=== PATIENT | male | born 1950 | race Caucasian/White ===

== ENCOUNTER → 2018-02-12 10:28 | Outpatient (CLI) | payer MEDICARE, SELFPAY | PROVIDERS: PCP Family Medicine; Visit Provider Family Medicine | DX: I48.91 Unspecified atrial fibrillation (principal) ==

== ENCOUNTER → 2018-02-14 08:41 | Outpatient (CLI) | payer MEDICARE, SELFPAY ==
[2018-02-14 10:06] LABS: Add Manual Diff / Slide Review NO; Eosinophils Percent Auto 2.5 % (2-4); Hematocrit 48.8 % (41-53); Hemoglobin 16.7 g/dL (13.5-17.5); Lymphocytes Percent Auto 16.4 % (25-40); Mean Corpuscular HGB Conc 34.2 % (30-36); Mean Corpuscular Hemoglobin 31.9 PG (26-34); Mean Corpuscular Volume 93.4 fL (80-100); Neutrophils Absolute Auto 4500 /uL (3000-5900); Neutrophils Percent Auto 70.1 % (50-75); Platelet Count 135 X10^3/uL (150-400); Red Blood Cell Count 5.22 X10^6/uL (4.5-5.9); Red Cell Distribution Width 13.3 % (11.6-14.8); White Blood Cell Count 6.3 X10^3/uL (4.5-11.0)
[2018-02-14 10:38] LABS: Alanine Aminotransferase 47 IU/L (21-72); Albumin 4.1 g/dL (3.5-5.0); Albumin Globulin Ratio 1.4 (1.0-2.8); Alkaline Phosphatase 80 U/L (38-126); Aspartate Aminotransferase 32 IU/L (17-59); BUN Creatinine Ratio 24.2 (6-22); Bilirubin Total 1.1 mg/dL (0.2-1.3); Blood Urea Nitrogen 29 mg/dL (9-20); Carbon Dioxide 28 mmol/L (22-32); Chloride 101 mmol/L (98-107); Cholesterol 166 mg/dL (140-199); Estimated Glomerular Filt Rate > 60.0 mL/min (>60); Globulin 2.9 g/dL (1.7-4.1); Glucose 98 mg/dL (80-110); HDL Cholesterol 33 mg/dL (40-60); HEMOLYSIS 16 (0-50); LDL Cholesterol Calculated 84 mg/dL (<100); Potassium 4.5 mmol/L (3.4-5.1); Sodium 138 mmol/L (137-145); Triglycerides 243 mg/dL (35-150)
[2018-02-14 10:52] LABS: Digoxin < 0.4 ng/mL (0.8-2.0)
[2018-02-14 11:06] LABS: Prostate Specific Antigen Scrn 0.694 ng/mL (0.1-4.0)
[2018-02-14 11:07] LABS: Thyroid Stimulating Hormone 2.57 uIU/mL (0.47-4.68)
== END ==
PROVIDERS: PCP Family Medicine; Visit Provider Family Medicine
DX: I48.91 Unspecified atrial fibrillation (principal); I50.9 Heart failure, unspecified; Z12.5 Encounter for screening for malignant neoplasm of prostate
CPT/HCPCS: 36415; 80053; 80061; 80162; 84443; 85025; G0103

== ENCOUNTER → 2019-05-04 14:51 | Outpatient (CLI) | payer MEDICARE, SELFPAY ==
--- NOTE | 2019-05-04 15:00 | DI.RAD.S_ITS ---
PROCEDURE: XR WRIST LT MIN 3V INDICATIONS: pain TECHNIQUE: 3 views of the wrist were acquired. COMPARISON: None. FINDINGS: Bones: Postsurgical changes compatible with ORIF of first metacarpal fracture noted. Orthopedic hardware is intact. No lucencies at the bone hardware interface. No acute fractures or dislocations. No suspicious bony lesions. 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 Scaphoid view: Scaphoid is intact Soft tissues: No suspicious soft tissue calcifications. IMPRESSION: No acute fracture. No acute osseous lesion. If symptoms and/or clinical suspicion for pathology persists, further assessment with repeat radiographs (7-10 days) or advanced imaging (e.g. CT, MRI or bone scan) may be helpful. Dictated by: Ginger López MD, PhD on 05/04/2019 at 15:03 Approved by: Ginger López MD, PhD on 05/04/2019 at 15:04
--- NOTE | 2019-05-04 15:00 | DI.RAD.S_ITS ---
PROCEDURE: XR HAND LT MIN 3V INDICATIONS: pain TECHNIQUE: 3 views of the hand(s) acquired. COMPARISON: None. FINDINGS: Bones: No acute fractures or dislocations. Osteoarthritic degenerative changes. Carpal bones are normally aligned. No suspicious bony lesions. Soft tissues: No suspicious soft tissue calcifications. IMPRESSION: No acute fracture. No acute osseous lesion. If symptoms and/or clinical suspicion for pathology persists, further assessment with repeat radiographs (7-10 days) or advanced imaging (e.g. CT, MRI or bone scan) may be helpful. Dictated by: Ginger López MD, PhD on 05/04/2019 at 14:42 Approved by: Ginger López MD, PhD on 05/04/2019 at 15:03
== END ==
PROVIDERS: PCP Family Medicine; Visit Provider Family Medicine
DX: M79.642 Pain in left hand (principal); S69.92XA Unspecified injury of left wrist, hand and finger(s), initial encounter; X58.XXXA Exposure to other specified factors, initial encounter
CPT/HCPCS: 73110; 73130

== ENCOUNTER → 2019-05-08 15:27 | Outpatient (CLI) | payer MEDICARE, SELFPAY ==
[2019-05-08 16:11] LABS: Add Manual Diff / Slide Review NO; Basophils Absolute Auto 100 /uL (0-100); Basophils Percent Auto 1.2 % (0-2); Eosinophils Absolute Auto 200 /uL (0-450); Eosinophils Percent Auto 3.4 % (2-4); Hematocrit 52.3 % (41-53); Hemoglobin 17.8 g/dL (13.5-17.5); Lymphocytes Absolute Auto 1800 /uL (1100-4500); Lymphocytes Percent Auto 25.3 % (25-40); Mean Corpuscular HGB Conc 33.9 % (30-36); Mean Corpuscular Hemoglobin 31.7 PG (26-34); Mean Corpuscular Volume 93.4 fL (80-100); Monocytes Absolute Auto 500 /uL (0-900); Monocytes Percent Auto 6.9 % (3-14); Neutrophils Absolute Auto 4400 /uL (1500-7000); Neutrophils Percent Auto 63.2 % (50-75); Platelet Count 162 X10^3/uL (150-400); Red Cell Distribution Width 13.7 % (11.6-14.8)
[2019-05-08 16:39] LABS: Alanine Aminotransferase 36 IU/L (21-72); Albumin 4.4 g/dL (3.5-5.0); Albumin Globulin Ratio 1.5 (1.0-2.8); Alkaline Phosphatase 106 U/L (38-126); Aspartate Aminotransferase 28 IU/L (17-59); BUN Creatinine Ratio 27.3 (6-22); Bilirubin Total 0.8 mg/dL (0.2-1.3); Blood Urea Nitrogen 30 mg/dL (9-20); Calcium 9.6 mg/dL (8.4-10.2); Carbon Dioxide 24 mmol/L (22-32); Chloride 100 mmol/L (98-107); Cholesterol 226 mg/dL (140-199); Estimated Glomerular Filt Rate > 60.0 mL/min (>60); Globulin 2.9 g/dL (1.7-4.1); Glucose 154 mg/dL (80-110); HDL Cholesterol 36 mg/dL (40-60); HEMOLYSIS 28 (0-50); LDL Cholesterol Calculated 118 mg/dL (<100); Potassium 4.9 mmol/L (3.4-5.1); Sodium 137 mmol/L (137-145); Total Protein 7.3 g/dL (6.3-8.2); Triglycerides 361 mg/dL (35-150)
[2019-05-08 17:09] LABS: Prostate Specific Antigen Scrn 0.765 ng/mL (0.1-4.0); Thyroid Stimulating Hormone 3.76 uIU/mL (0.47-4.68)
[2019-05-08 21:17] LABS: Hemoglobin A1C% w Est Avg Glu 6.6 % (4.0-6.0)
== END ==
PROVIDERS: PCP Family Medicine; Visit Provider Family Medicine
DX: Z12.5 Encounter for screening for malignant neoplasm of prostate (principal); Z13.1 Encounter for screening for diabetes mellitus; Z13.220 Encounter for screening for lipoid disorders; Z13.29 Encounter for screening for other suspected endocrine disorder; I48.91 Unspecified atrial fibrillation; I50.9 Heart failure, unspecified
CPT/HCPCS: 36415; 80053; 80061; 83036; 84443; 85025; G0103

== ENCOUNTER 2019-05-10 13:35 | Emergency (ER) | payer MEDICARE, SELFPAY ==
[2019-05-10 13:40] VITALS: BP 102/84; PULSE 105; RESP 18; TEMP 36.7; O2SAT 96
[2019-05-10 14:19] LABS: Add Manual Diff / Slide Review NO; Basophils Absolute Auto 100 /uL (0-100); Basophils Percent Auto 0.5 % (0-2); Eosinophils Absolute Auto 100 /uL (0-450); Eosinophils Percent Auto 1.2 % (2-4); Hematocrit 51.9 % (41-53); Hemoglobin 17.6 g/dL (13.5-17.5); Lymphocytes Absolute Auto 1400 /uL (1100-4500); Lymphocytes Percent Auto 14.7 % (25-40); Mean Corpuscular Hemoglobin 31.9 PG (26-34); Mean Corpuscular Volume 93.7 fL (80-100); Monocytes Absolute Auto 800 /uL (0-900); Monocytes Percent Auto 8.6 % (3-14); Neutrophils Absolute Auto 7300 /uL (1500-7000); Platelet Count 168 X10^3/uL (150-400); Red Blood Cell Count 5.53 X10^6/uL (4.5-5.9); Red Cell Distribution Width 13.5 % (11.6-14.8); White Blood Cell Count 9.7 X10^3/uL (4.5-11.0)
[2019-05-10 14:25] LABS: Prothrombin Time 11.9 SECONDS (10.1-12.7)
[2019-05-10 14:27] LABS: PTT Partial Thromboplastin Tim 33 SECONDS (26.4-36.2)
[2019-05-10 14:29] LABS: Alanine Aminotransferase 31 IU/L (21-72); Albumin 4.7 g/dL (3.5-5.0); Albumin Globulin Ratio 1.5 (1.0-2.8); Alkaline Phosphatase 106 U/L (38-126); Aspartate Aminotransferase 34 IU/L (17-59); Bilirubin Total 0.9 mg/dL (0.2-1.3); Blood Urea Nitrogen 39 mg/dL (9-20); Calcium 9.6 mg/dL (8.4-10.2); Carbon Dioxide 27 mmol/L (22-32); Chloride 100 mmol/L (98-107); Estimated Glomerular Filt Rate 46.5 mL/min (>60); Globulin 3.2 g/dL (1.7-4.1); Glucose 139 mg/dL (80-110); HEMOLYSIS 23 (0-50); Lipase 49 U/L (23-300); Potassium 4.2 mmol/L (3.4-5.1); Sodium 139 mmol/L (137-145); Total Protein 7.9 g/dL (6.3-8.2)
[2019-05-10 14:52] LABS: Procalcitonin 0.08 ng/mL (<0.5)
[2019-05-10] MEDS: SODIUM CHLORIDE 0.9% 1,000 ML 1000 ML IV (15:02)
[2019-05-10 15:33] VITALS: BP 108/81; PULSE 99; RESP 18; O2SAT 96
[2019-05-10] MEDS: VANCOMYCIN 1,500 MG/300 ML FROZ.PIGGY 200 MG IV (15:39)
--- NOTE | 2019-05-10 16:32 | ED.FEVER ---
HPI - Fever General Chief Complaint: Fever Stated Complaint: Cut left hand a week ago, discoloration up arm Time Seen by Provider: 05/10/19 14:08 Source: patient Mode of arrival: Ambulatory Limitations: no limitations History of Present Illness HPI Narrative: Patient comes emergency department complaining of a swollen, red left hand after sustaining an injury about 1 week ago. Patient has been on Keflex for an infected wound related to that injury for about the last 5-6 days and states he is taking ?most of the doses?. He admits to missing ?1 or 2 doses?. Patient states this swelling has not gotten better but has actually got a little bit worse. He denies any fevers. He states he has not felt ill in any other way. Related Data Home Medications Medication Instructions Recorded Confirmed multivitamin [Multiple Vitamins] 1 tab PO DAILY #0 12/27/16 05/11/19 omega 3-pty-pyy-fish oil [Fish Oil] 1,000 mg PO DAILY #0 12/27/16 05/11/19 cholecalciferol (vitamin D3) 2,000 unit PO DAILY 05/10/19 05/11/19 atorvastatin 40 mg PO DAILY 05/11/19 05/11/19 carvedilol 12.5 mg PO BID 05/11/19 05/11/19 citalopram 60 mg PO DAILY 05/11/19 05/11/19 cyanocobalamin (vitamin B-12) 2,000 mcg PO DAILY 05/11/19 05/11/19 [Vitamin B-12] furosemide 40 mg PO DAILY 05/11/19 05/11/19 lisinopril 5 mg PO DAILY 05/11/19 05/11/19 magnesium oxide 400 mg PO DAILY 05/11/19 05/11/19 Previous Rx's Medication Instructions Recorded amiodarone 200 mg tablet 200 mg PO [facility] #90 tab 03/09/19 metoprolol succinate 100 mg 150 mg PO BID #270 tab 03/09/19 tablet,extended release 24 hr apixaban 5 mg tablet 5 mg PO BID #60 tab 05/14/19 oxycodone 5 mg PO Q6H PRN #20 tab 05/14/19 Allergies Allergy/AdvReac Type Severity Reaction Status Date / Time Iodinated Contrast Media AdvReac Intermediate Vomiting Verified 05/11/19 14:19 Review of Systems Constitutional Constitutional: Denies chills, Denies fatigue, Denies fever(s), Denies frequent falls, Denies lethargy and Denies weakness Eyes Eyes: Denies change in vision, Denies eye discharge, Denies irritation and Denies loss of vision ENT Ears, Nose, Mouth, and Throat: Denies change in voice, Denies dizziness, Denies neck pain, Denies sore throat and Denies throat swelling Cardiovascular Cardiovascular: Denies chest pain, Denies irregular heart rhythm, Denies lightheadedness, Denies palpitations, Denies dyspnea, Denies dyspnea on exertion and Denies orthopnea Respiratory Respiratory: Denies cough, Denies dyspnea, Denies dyspnea on exertion and Denies wheezing Gastrointestinal Gastrointestinal: Denies abdominal pain, Denies change in bowel habits, Denies diarrhea, Denies nausea and Denies vomiting Genitourinary Genitourinary: Denies hematuria, Denies flank pain, Denies urinary incontinence and Denies urinary urgency Musculoskeletal Musculoskeletal: Denies back pain, Denies muscle weakness, Denies neck pain, Denies numbness and Denies tingling Comments: Left hand swelling Integumentary/Breasts Skin/Breast: Denies pruritus, Reports erythema, Denies rash and Reports wounds Comments: Left hand Neurologic Neurologic: Denies behavioral changes, Denies confusion, Denies dizziness, Denies frequent falls, Denies loss of vision, Denies numbness, Denies tingling and Denies weakness Psychiatric Psychiatric: Denies anxiety, Denies behavioral changes, Denies confusion, Denies depression, Denies homicidal ideation and Denies suicidal ideation Endocrine Endocrine: Denies fatigue, Denies flushing and Denies palpitations Hematologic/Lymphatic Hematologic/Lymphatic: Denies easy bruising Allergic/Immunologic Allergic/Immunologic: Denies urticaria, Denies throat swelling and Denies wheezing Patient History Medical History Anticoagulated by anticoagulation treatment (Acute) Atrial fibrillation (Chronic 01/07/17) Cardiomyopathy, nonischemic (Chronic) Cellulitis (Acute) Chronic congestive heart failure (Chronic 01/07/17) Essential hypertension (Chronic) Left lower lobe pulmonary nodule (Chronic) Mediastinal lymphadenopathy (Chronic 01/07/17) Pulmonary hypertension (Chronic) Social History household members: spouse Smoking Status: Former smoker alcohol intake frequency: 0-2 drinks per day Substance Use Type: marijuana Exam Initial Vital Signs Initial Vital Signs: Vital Signs Temperature 98.1 F 05/10/19 13:40 Pulse Rate 105 H 05/10/19 13:40 Respiratory Rate 18 05/10/19 13:40 Blood Pressure 102/84 05/10/19 13:40 Pulse Oximetry 96 05/10/19 13:40 Const General: cooperative and well developed Nutritional Appearance: well nourished Orientation: alert, awake, oriented x3 and not confused [facility] Head: normocephalic and atraumatic Ears: external ears normal and TM's normal bilaterally Nose: external nose normal and No nasal discharge Face and sinus: sinuses nontender, face symmetric, no sinus tenderness and No dry mucous membranes Mouth: oral mucosae normal and moist mucous membranes Teeth and gingiva: dentition normal Throat: tonsils normal and uvula midline Eyes General: appearance normal, both eyes and all related structures Eyelids: eyelids normal Conjunctivae: conjunctivae normal Sclera: sclerae normal Pupils: PERRL EOM: EOM intact bilaterally Neck Neck: normal visual inspection, trachea midline, No lymphadenopathy, No midline deformity and No JVD Lymphatic: No lymphedema Chest Chest: normal inspection of the chest Resp Effort & Inspection: normal respiratory effort, able to speak in complete sentences, no respiratory distress and no use of accessory muscles Auscultation: clear to auscultation bilaterally, no rales, no rhonchi and no wheezes Cardio Rate: regular rate Rhythm: regular rhythm Heart Sounds: no click, no gallops, no murmurs and no rubs Pulses: normal peripheral pulses GI Inspection: non-distended Palpation: soft, no hepatosplenomegaly, No guarding, No pulsatile mass and No tender Auscultation: normal bowel sounds Back/Spine/Pelvis Back: No CVA tenderness Cervical Spine: cervical ROM normal and No pain with cervical ROM Thoracic/Lumbar Spine: thoracic and lumbar spine normal to inspection Skin General: no rashes or lesions noted, No jaundice and No petechiae Neuro General: alert, oriented x3, gait normal and no focal motor deficits Speech: speech normal Extrem General: no pedal edema Other: Patient's left hand displays significant edema with erythema involving the entire dorsum of the hand, as well as the dorsal and ulnar aspects of the left forearm. Some dependent ecchymosis is noted along the ulnar aspect of the forearm, as well. no bony deformity. An old, healing, 3 x 1 cm laceration is noted on the ulnar aspect of the patient's left hand, as well. no drainage, induration, or fluctuance is associated with this wound. Psych Appearance: well kempt Mental Status: mental status grossly normal Attitude: cooperative Thought Content: normal and suicidality Judgment: judgment good Course Course Course Narrative: The patient was given a dose of vancomycin in the emergency department. It was unclear to me whether the patient had taken most of his Keflex or not, but it did seem that he had at least missed couple of doses. I discussed with the patient that it is extremely important for him to take all of his oral antibiotics, as directed. I did not find evidence of an abscess on exam, and the wound was far too old to repair. The patient's white blood cell count is normal, and the patient was afebrile. He wished to go home, so I had nursing staff secure his IV and I gave the patient's instructions to come back tomorrow morning for a 2nd dose of vancomycin and recheck. The patient was given a prescription for Bactrim, which he should start in the meantime, as well. We have discussed home management of symptoms, as well as the usual indications for return. Orders Ordered: Discontinued Medications Sodium Chloride (Normal Saline 0.9%) 1,000 mls @ 1,000 mls/hr IV BOLUS ONE Stop: 05/10/19 14:48 Last Infusion: 05/10/19 16:26 Dose: 0 mls/hr Documented by: Admin: 05/10/19 15:02 Dose: 1,000 mls/hr Documented by: HOLLIE Vancomycin HCl/Dextrose (Vancomycin) 1,500 mg in 300 mls @ 200 mls/hr IV NOW ONE Stop: 05/10/19 17:05 Last Infusion: 05/10/19 17:19 Dose: 0 mls/hr Documented by: Admin: 05/10/19 15:39 Dose: 200 mls/hr Documented by: HOLLIE Vital Signs Vital signs: Vital Signs - 8 hr 05/10/19 13:40 05/10/19 15:33 Temperature 98.1 F Pulse Rate 105 H 99 H Respiratory Rate 18 18 Blood Pressure 102/84 Blood Pressure [Right Arm] 108/81 Pulse Oximetry 96 96 MDM - Fever Medical Records Attestation: I reviewed the patient's medical records. Lab Data Attestation: I reviewed the patient's lab results. Result diagrams: 05/10/19 14:05 05/10/19 14:05 Labs: Lab Results 05/10/19 05/10/19 05/10/19 Range/Units 14:05 14:05 14:05 WBC 9.7 (4.5-11.0) X10^3/uL RBC 5.53 (4.5-5.9) X10^6/uL Hgb 17.6 H (13.5-17.5) g/dL Hct 51.9 (41-53) % MCV 93.7 (80-100) fL MCH 31.9 (26-34) PG MCHC 34.0 (30-36) % RDW 13.5 (11.6-14.8) % Plt Count 168 (150-400) X10^3/uL Neut % (Auto) 75.0 (50-75) % Lymph % (Auto) 14.7 L (25-40) % [place] % (Auto) 8.6 (3-14) % Eos % (Auto) 1.2 L (2-4) % Baso % (Auto) 0.5 (0-2) % Neut # (Auto) 7300 H (7426-6971) /uL Lymph # (Auto) 1400 (1431-3747) /uL [place] # (Auto) 800 (0-900) /uL Eos # (Auto) 100 (0-450) /uL Baso # (Auto) 100 (0-100) /uL PT 11.9 (10.1-12.7) SECONDS INR 1.0 (0.9-1.3) APTT 33 (26.4-36.2) SECONDS Sodium (137-145) mmol/L Potassium (3.4-5.1) mmol/L Chloride (98-107) mmol/L Carbon Dioxide (22-32) mmol/L BUN (9-20) mg/dL Creatinine (0.66-1.25) mg/dL Estimated GFR (>60) mL/min BUN/Creatinine Ratio (6-22) Glucose (80-110) mg/dL Lactate (0.7-2.1) mmol/L Calcium (8.4-10.2) mg/dL Total Bilirubin (0.2-1.3) mg/dL AST (17-59) IU/L ALT (21-72) IU/L Alkaline Phosphatase (38-126) U/L Total Protein (6.3-8.2) g/dL Albumin (3.5-5.0) g/dL Globulin (1.7-4.1) g/dL Albumin/Globulin Ratio (1.0-2.8) Lipase (23-300) U/L Procalcitonin 0.08 (<0.5) ng/mL 05/10/19 05/10/19 Range/Units 14:05 14:05 WBC (4.5-11.0) X10^3/uL RBC (4.5-5.9) X10^6/uL Hgb (13.5-17.5) g/dL Hct (41-53) % MCV (80-100) fL MCH (26-34) PG MCHC (30-36) % RDW (11.6-14.8) % Plt Count (150-400) X10^3/uL Neut % (Auto) (50-75) % Lymph % (Auto) (25-40) % [place] % (Auto) (3-14) % Eos % (Auto) (2-4) % Baso % (Auto) (0-2) % Neut # (Auto) (8293-2957) /uL Lymph # (Auto) (1279-2773) /uL [place] # (Auto) (0-900) /uL Eos # (Auto) (0-450) /uL Baso # (Auto) (0-100) /uL PT (10.1-12.7) SECONDS INR (0.9-1.3) APTT (26.4-36.2) SECONDS Sodium 139 (137-145) mmol/L Potassium 4.2 (3.4-5.1) mmol/L Chloride 100 (98-107) mmol/L Carbon Dioxide 27 (22-32) mmol/L BUN 39 H (9-20) mg/dL Creatinine 1.50 H (0.66-1.25) mg/dL Estimated GFR 46.5 L (>60) mL/min BUN/Creatinine Ratio 26.0 H (6-22) Glucose 139 H (80-110) mg/dL Lactate 2.0 (0.7-2.1) mmol/L Calcium 9.6 (8.4-10.2) mg/dL Total Bilirubin 0.9 (0.2-1.3) mg/dL AST 34 (17-59) IU/L ALT 31 (21-72) IU/L Alkaline Phosphatase 106 (38-126) U/L Total Protein 7.9 (6.3-8.2) g/dL Albumin 4.7 (3.5-5.0) g/dL Globulin 3.2 (1.7-4.1) g/dL Albumin/Globulin Ratio 1.5 (1.0-2.8) Lipase 49 (23-300) U/L Procalcitonin (<0.5) ng/mL Urine Dip Bedside Urine Glucose Negative Bedside Urine Bilirubin - Negative Bedside Urine Ketone - Negative Urine Specific [place] 1.015 Bedside Urine Occult Blood - Negative Bedside Urine pH 5.5 Bedside Urine Protein - Negative Bedside Urine Urobilinogen - Negative Bedside Urine Nitrite - Negative Bedside Urine Leukocytes - Negative Esterase Discharge Plan Departure Patient Disposition: Home Clinical Impression: Cellulitis Qualifiers: Site of cellulitis: extremity Site of cellulitis of extremity: upper extremity Laterality: left Qualified Code(s): L03.114 - Cellulitis of left upper limb Discharge Date/Time: 05/10/19 17:20 Instructions: DI for Cellulitis -- Adult Activity Restrictions/Additional Instructions: Please return 1st thing tomorrow morning to have your hand rechecked and potentially, to get another dose of vancomycin. Please discontinue the Keflex and start the Bactrim. If you can feel this tonight that would be ideal; otherwise please get it filled tomorrow morning after your ER visit. Prescriptions: No Action multivitamin [Multiple Vitamins] 1 EACH tablet 1 tab PO DAILY Qty: 0 RF: 0 omega 1-giw-fmx-fish oil [Fish Oil] 1,000 MG capsule 1,000 mg PO DAILY Qty: 0 RF: 0 metoprolol succinate 100 mg tablet extended release 24 hr 150 mg PO BID Qty: 270 RF: 0 amiodarone 200 mg tablet 200 mg PO [facility] Qty: 90 RF: 0 Eliquis 5 mg tablet 5 mg PO BID Qty: 60 RF: 5 cholecalciferol (vitamin D3) 2,000 unit Capsule 2,000 unit PO DAILY RF: 0 carvedilol 12.5 mg tablet 12.5 mg PO BID RF: 0 citalopram 20 mg tablet 60 mg PO DAILY RF: 0 furosemide 40 mg tablet 40 mg PO DAILY RF: 0 lisinopril 5 mg tablet 5 mg PO DAILY RF: 0 atorvastatin 20 mg tablet 40 mg PO DAILY RF: 0 cyanocobalamin (vitamin B-12) [Vitamin B-12] 2,000 mcg Tablet Extended Release 2,000 mcg PO DAILY RF: 0 magnesium oxide 400 mg magnesium Tablet 400 mg PO DAILY RF: 0 oxycodone 5 mg tablet 5 mg PO Q6H PRN (Reason: pain) Qty: 20 RF: 0 Referrals: Maximiliano Camarena MD [Primary Care Provider] -
[2019-05-10 17:20] VITALS: BP 117/68; PULSE 77; RESP 16; O2SAT 97
== END 2019-05-10 17:20 | disposition home or self-care (01) ==
PROVIDERS: Emergency Provider Emergency Medicine; PCP Family Medicine
DX: L03.114 Cellulitis of left upper limb (principal); S61.412A Laceration without foreign body of left hand, initial encounter
CPT/HCPCS: 36415; 80053; 81003; 83605; 83690; 84145; 85025; 85610; 85730; 87040; 99283

== ENCOUNTER 2019-05-11 12:39 | Inpatient (IN) | payer MEDICARE, SELFPAY ==
[2019-05-11] VITALS (8 sets, daily range): BP systolic 119–148; BP diastolic 75–97; PULSE 56–76; RESP 16–20; TEMP 36.2–37.1; O2SAT 96–98; BMI 31.6
[2019-05-11] MEDS: VANCOMYCIN 1,500 MG/300 ML FROZ.PIGGY 200 MG IV (13:44)
--- NOTE | 2019-05-11 13:51 | ED_ITS ---
HPI - Recheck/Abnormal Lab/Rx General Chief Complaint: Recheck/Abnormal Lab/Rx Stated Complaint: left hand infection,IV antibiotics Time Seen by Provider: 05/11/19 13:29 Source: patient Mode of arrival: Ambulatory Limitations: no limitations History of Present Illness HPI narrative: 69-year-old male who approximately 1 week ago sustained an injury to the back of his left hand while using a gold nib grinder. He went to his primary provider. Had x-rays done which showed no signs of fractures. According to that primary doctor's note it did not look infected however the patient was given a prescription for Keflex. He states that he did take this antibiotic however his emergency department note yesterday did have some concerns about whether not he took it appropriately. He came to the emergency department yesterday because he had increasing redness and pain on his left hand and left arm. He was evaluated that time was diagnosed with cellulitis. Was given a IV dose of vancomycin. Was given a prescription for Bactrim however the patient has yet to fill this prescription. Was told to come back to the emergency department today because he was told to for another dose of IV antibiotics. He does feel like that the redness has improved slightly from yesterday. Related Data Home Medications Medication Instructions Recorded Confirmed multivitamin [Multiple Vitamins] 1 tab PO DAILY #0 12/27/16 05/11/19 omega 2-bol-ven-fish oil [Fish Oil] 1,000 mg PO DAILY #0 12/27/16 05/11/19 cholecalciferol (vitamin D3) 2,000 unit PO DAILY 05/10/19 05/11/19 atorvastatin 40 mg PO DAILY 05/11/19 05/11/19 carvedilol 12.5 mg PO BID 05/11/19 05/11/19 citalopram 60 mg PO DAILY 05/11/19 05/11/19 cyanocobalamin (vitamin B-12) 2,000 mcg PO DAILY 05/11/19 05/11/19 [Vitamin B-12] furosemide 40 mg PO DAILY 05/11/19 05/11/19 lisinopril 5 mg PO DAILY 05/11/19 05/11/19 magnesium oxide 400 mg PO DAILY 05/11/19 05/11/19 Previous Rx's Medication Instructions Recorded amiodarone 200 mg tablet 200 mg PO [facility] #90 tab 03/09/19 metoprolol succinate 100 mg 150 mg PO BID #270 tab 03/09/19 tablet,extended release 24 hr apixaban 5 mg tablet 5 mg PO BID #60 tab 03/30/19 cephalexin 500 mg capsule 500 mg PO QID #28 cap 05/04/19 sulfamethoxazole-trimethoprim 1 tab PO BID #14 tab 05/10/19 [Bactrim DS] Allergies Allergy/AdvReac Type Severity Reaction Status Date / Time Iodinated Contrast Media AdvReac Intermediate Vomiting Verified 05/11/19 14:19 Review of Systems Constitutional Constitutional: Denies fever(s) Cardiovascular Cardiovascular: Denies chest pain and Denies dyspnea Respiratory Respiratory: Denies dyspnea Gastrointestinal Gastrointestinal: Denies abdominal pain Musculoskeletal Musculoskeletal: Denies myalgias and Denies arthralgias Integumentary/Breasts Comments: Wound to the back of the left hand redness and swelling to the left hand Neurologic Neurologic: Denies behavioral changes Psychiatric Psychiatric: Denies behavioral changes Hematologic/Lymphatic Hematologic/Lymphatic: Denies easy bleeding and Denies easy bruising Patient History Medical History Atrial fibrillation (Chronic 01/07/17) Cardiomyopathy, nonischemic (Chronic) Chronic congestive heart failure (Chronic 01/07/17) Essential hypertension (Chronic) Left lower lobe pulmonary nodule (Chronic) Mediastinal lymphadenopathy (Chronic 01/07/17) Pulmonary hypertension (Chronic) Social History Smoking Status: Former smoker alcohol intake frequency: 0-2 drinks per day Substance Use Type: marijuana Exam Initial Vital Signs Initial Vital Signs: Vital Signs Temperature 98.0 F 05/11/19 13:14 Pulse Rate 63 05/11/19 13:14 Respiratory Rate 20 05/11/19 13:14 Blood Pressure 119/77 05/11/19 13:14 Pulse Oximetry 96 05/11/19 13:14 Const General: cooperative, comfortable, well developed and well groomed Resp Effort & Inspection: normal respiratory effort Cardio Rate: regular rate Pulses: radial pulses present on the left Skin Other: Patient with a 5 cm x 1 cm cut to the back of his left hand. Is on the little finger side. It is distal to the wrist joint. His left hand is red and swollen. He does have redness extending on the volar aspect of his left arm ulnar side from his wrist to his elbow. Neuro General: alert, awake and oriented x3 Sensory Exam: no sensory deficits noted Extrem Other: Capillary refill approximately 3 seconds left hand Psych Appearance: grossly normal and well kempt Course Orders Ordered: ED Orders 05/11/19 13:42 Complete Blood Count AUTO DIFF Stat Comprehensive Metabolic Panel Stat Lipase Stat Procalcitonin Stat 05/11/19 13:54 CT UE RT w con Stat Discontinued Medications Diphtheria/Tetanus/Acell Pertussis (Adacel) 0.5 ml IM .ONCE ONE Stop: 05/11/19 13:52 Last Admin: 05/11/19 13:57 Dose: 0.5 ml Documented by: HOLLIE Vancomycin HCl/Dextrose (Vancomycin) 1,500 mg in 300 mls @ 200 mls/hr IV NOW ONE Stop: 05/11/19 14:51 Last Infusion: 05/11/19 15:39 Dose: 0 mls/hr Documented by: Admin: 05/11/19 13:44 Dose: 200 mls/hr Documented by: JAYLEEN Ondansetron HCl (Zofran) 4 mg IV NOW ONE Stop: 05/11/19 14:21 Last Admin: 05/11/19 14:22 Dose: 4 mg Documented by: JAYLEEN Vital Signs Vital signs: Vital Signs - 8 hr 05/11/19 13:14 Temperature 98.0 F Pulse Rate 63 Respiratory Rate 20 Blood Pressure 119/77 Pulse Oximetry 96 MDM - Recheck/Abnormal Lab/Rx Medical Records Attestation: I reviewed the patient's medical records. Lab Data Attestation: I reviewed the patient's lab results. Result diagrams: 05/11/19 13:42 05/11/19 13:42 Labs: Lab Results 05/11/19 05/11/19 05/11/19 Range/Units 13:42 13:42 13:42 WBC 7.1 (4.5-11.0) X10^3/uL RBC 5.07 (4.5-5.9) X10^6/uL Hgb 16.1 (13.5-17.5) g/dL Hct 47.4 (41-53) % MCV 93.6 (80-100) fL MCH 31.8 (26-34) PG MCHC 34.0 (30-36) % RDW 13.7 (11.6-14.8) % Plt Count 154 (150-400) X10^3/uL Neut % (Auto) 58.7 (50-75) % Lymph % (Auto) 25.9 (25-40) % [place] % (Auto) 9.4 (3-14) % Eos % (Auto) 4.8 H (2-4) % Baso % (Auto) 1.2 (0-2) % Neut # (Auto) 4200 (4534-2620) /uL Lymph # (Auto) 1800 (8718-2093) /uL [place] # (Auto) 700 (0-900) /uL Eos # (Auto) 300 (0-450) /uL Baso # (Auto) 100 (0-100) /uL Sodium 137 (137-145) mmol/L Potassium 4.4 (3.4-5.1) mmol/L Chloride 102 (98-107) mmol/L Carbon Dioxide 25 (22-32) mmol/L BUN 32 H (9-20) mg/dL Creatinine 1.10 (0.66-1.25) mg/dL Estimated GFR > 60.0 (>60) mL/min BUN/Creatinine Ratio 29.1 H (6-22) Glucose 108 (80-110) mg/dL Calcium 9.0 (8.4-10.2) mg/dL Total Bilirubin 1.2 (0.2-1.3) mg/dL AST 41 (17-59) IU/L ALT 30 (21-72) IU/L Alkaline Phosphatase 117 (38-126) U/L Total Protein 7.3 (6.3-8.2) g/dL Albumin 4.3 (3.5-5.0) g/dL Globulin 3.0 (1.7-4.1) g/dL Albumin/Globulin Ratio 1.4 (1.0-2.8) Lipase 286 D (23-300) U/L Procalcitonin 0.07 (<0.5) ng/mL Imaging Data CT scan wrist: Radiologist's impression: [address] [address] [address] Scan Report Signed Patient: Tan Briggs BMR#: [id number] : 1Acct:[id number] Age/Sex: 69 / MDate of Service: 05/11/19 Loc: ED Accession Number: [id number] Procedure: CT UE RT w con Ordering Provider: London Connolly D.O. PROCEDURE: CT UE RT W CON INDICATIONS: swelling and infection left hand TECHNIQUE: After the administration of intravenous contrast, 3 mm axial sections acquired of the right forearm, with coronal and sagittal reformats. COMPARISON: None. FINDINGS: Image quality: Diagnostic. Bones: No acute fracture, dislocation, or suspicious osseous lesion is appreciated involving the osseous structures of the right forearm. Postoperative changes of the 1st metacarpal are present. Prominent degenerative changes of the wrist are most pronounced involving the joints of the thumb and the other metacarpophalangeal joints. However, the degree of degenerative changes are not well characterized on this study. The remainder of the imaged osseous structures of the hand are grossly unremarkable. Soft tissues: Extensive subcutaneous edema is identified throughout the imaged portions of the right forearm. No drainable or loculated fluid collections are evident. No peripherally enhancing loculated fluid collections are identified. Vascular structures appear to be widely patent. No soft tissue masses or suspicious soft tissue enhancement is appreciated. No definite elbow joint effusion is evident. IMPRESSION: 1. Subcutaneous edema about the right forearm is most suggestive of cellulitis. 2. No definite abscess or drainable fluid collection. 3. No fractures or suspicious osseous lesions. If there is high clinical concern for osteomyelitis, please consider MRI for further evaluation. 4. Degenerative and postoperative changes of the hand are not well characterized. Dictated by: Larry Baker M.D. on 05/11/2019 at 13:30 Approved by: Larry Baker M.D. on 05/11/2019 at 13:35 [facility] Narrative Medical decision making narrative: Patient does have a wound to the back of the left hand. Unfortunately it has been too long for any suturing here in the ER. There is a an obvious cellulitis to his left hand extending to his fingers. There is what appears to be bruising on the volar aspect of his left arm to his elbow. Patient states this started just a couple days ago. His CT scan was ordered which is consistent with cellulitis however no signs of drainable abscess. He was given a dose of IV antibiotics again here in the emergency department. I do have concern that he failed his initial course of Keflex at home. He potentially is improving after 1 dose of the IV vancomycin. I am concerned that if he is not admitted for IV antibiotics and does not take the Bactrim that his symptoms could potentially worsen. I did discuss the case with Dr. Wu who is on-call for the patient's primary doctor who will admit. Initially patient was okay with being admitted to the hospital but then stated that he had things to do which included moving some stuff around in his truck, going to the bank, going to the [employer] to get a ?steak dinner ?. He asked if he could leave and come back to the emergency department. Informed him that we could help with him moving items around in his truck however if he left the hospital premises to go to the back or to the [facility] that he would have to sign out against medical advice and then returned. Patient initially signed the Against Medical Advice forms and left the emergency department. Shortly afterwards he returned with his son. Stating that he was okay with being admitted to the hospital at this point. Initially patient was checked in under another visit however administration allowed his new visit to be merged with this 1. Patient will be admitted. Discharge Plan Departure Patient Disposition: Admitted As Inpatient Clinical Impression: Cellulitis Qualifiers: Site of cellulitis: extremity Site of cellulitis of extremity: upper extremity Laterality: left Qualified Code(s): L03.114 - Cellulitis of left upper limb Discharge Date/Time: 05/11/19 17:40 Admit Date/Time: 05/11/19 14:54 Admit Provider: Deni Wu
--- NOTE | 2019-05-11 13:54 | DI.CT.S_ITS ---
PROCEDURE: CT UE RT W CON INDICATIONS: swelling and infection left hand TECHNIQUE: After the administration of intravenous contrast, 3 mm axial sections acquired of the right forearm, with coronal and sagittal reformats. COMPARISON: None. FINDINGS: Image quality: Diagnostic. Bones: No acute fracture, dislocation, or suspicious osseous lesion is appreciated involving the osseous structures of the right forearm. Postoperative changes of the 1st metacarpal are present. Prominent degenerative changes of the wrist are most pronounced involving the joints of the thumb and the other metacarpophalangeal joints. However, the degree of degenerative changes are not well characterized on this study. The remainder of the imaged osseous structures of the hand are grossly unremarkable. Soft tissues: Extensive subcutaneous edema is identified throughout the imaged portions of the right forearm. No drainable or loculated fluid collections are evident. No peripherally enhancing loculated fluid collections are identified. Vascular structures appear to be widely patent. No soft tissue masses or suspicious soft tissue enhancement is appreciated. No definite elbow joint effusion is evident. IMPRESSION: 1. Subcutaneous edema about the right forearm is most suggestive of cellulitis. 2. No definite abscess or drainable fluid collection. 3. No fractures or suspicious osseous lesions. If there is high clinical concern for osteomyelitis, please consider MRI for further evaluation. 4. Degenerative and postoperative changes of the hand are not well characterized. Dictated by: Larry Baker M.D. on 05/11/2019 at 13:30 Approved by: Larry Baker M.D. on 05/11/2019 at 13:35
[2019-05-11] MEDS: TET,DIPH,PERTUSS(ACELL),VAC/PF 0.5 ML SYRINGE IM (13:57)
[2019-05-11 13:58] LABS: Add Manual Diff / Slide Review NO; Basophils Absolute Auto 100 /uL (0-100); Basophils Percent Auto 1.2 % (0-2); Eosinophils Absolute Auto 300 /uL (0-450); Eosinophils Percent Auto 4.8 % (2-4); Hematocrit 47.4 % (41-53); Hemoglobin 16.1 g/dL (13.5-17.5); Lymphocytes Absolute Auto 1800 /uL (1100-4500); Lymphocytes Percent Auto 25.9 % (25-40); Mean Corpuscular Hemoglobin 31.8 PG (26-34); Mean Corpuscular Volume 93.6 fL (80-100); Monocytes Absolute Auto 700 /uL (0-900); Monocytes Percent Auto 9.4 % (3-14); Neutrophils Absolute Auto 4200 /uL (1500-7000); Neutrophils Percent Auto 58.7 % (50-75); Platelet Count 154 X10^3/uL (150-400); Red Blood Cell Count 5.07 X10^6/uL (4.5-5.9); Red Cell Distribution Width 13.7 % (11.6-14.8); White Blood Cell Count 7.1 X10^3/uL (4.5-11.0)
[2019-05-11 14:06] LABS: Alanine Aminotransferase 30 IU/L (21-72); Albumin 4.3 g/dL (3.5-5.0); Albumin Globulin Ratio 1.4 (1.0-2.8); Alkaline Phosphatase 117 U/L (38-126); Aspartate Aminotransferase 41 IU/L (17-59); BUN Creatinine Ratio 29.1 (6-22); Bilirubin Total 1.2 mg/dL (0.2-1.3); Blood Urea Nitrogen 32 mg/dL (9-20); Carbon Dioxide 25 mmol/L (22-32); Chloride 102 mmol/L (98-107); Estimated Glomerular Filt Rate > 60.0 mL/min (>60); Glucose 108 mg/dL (80-110); Lipase 286 U/L (23-300); Potassium 4.4 mmol/L (3.4-5.1); Sodium 137 mmol/L (137-145); Total Protein 7.3 g/dL (6.3-8.2)
[2019-05-11 14:07] LABS: HEMOLYSIS 52 (0-50)
[2019-05-11 14:21] LABS: Procalcitonin 0.07 ng/mL (<0.5)
[2019-05-11] MEDS: ONDANSETRON 4 MG/2 ML INJ IV (14:22)
--- NOTE | 2019-05-11 14:54 | PM.HP.1 ---
History of Present Illness History of Present Illness Date Patient Seen: 05/11/19 Chief complaint: left hand infection,IV antibiotics Narrative: Patient injured his hand on a grinding stone approximately 1 week ago. Was seen in the clinic not felt to have any serious infection although was started on antibiotics (Dr. Camarena's note suggests no infection but antibiotics were called in and patient did take a course of Keflex). Patient had progressive swelling pain and discomfort was seen in the ER day prior to admission. Given a single dose of IV vancomycin and told to return on day of admission for re-evaluation. Wound does not look any better and in fact maybe slightly worse per nursing staff were present in the ED on both days. Therefore he is admitted for continued IV antibiotic therapy Patient History Medical History Atrial fibrillation (Chronic 01/07/17) Cardiomyopathy, nonischemic (Chronic) Chronic congestive heart failure (Chronic 01/07/17) Essential hypertension (Chronic) Left lower lobe pulmonary nodule (Chronic) Mediastinal lymphadenopathy (Chronic 01/07/17) Pulmonary hypertension (Chronic) Family & Social History Tobacco & Substance use: Smoking Status Former smoker alcohol intake frequency 0-2 drinks per day Substance Use Type marijuana Meds Home Medications and Allergies Home Medications Medication Instructions Recorded Confirmed Type multivitamin [Multiple Vitamins] 1 tab PO DAILY #0 12/27/16 05/11/19 History omega 8-efx-miv-fish oil [Fish Oil] 1,000 mg PO DAILY #0 12/27/16 05/11/19 History amiodarone 200 mg tablet 200 mg [facility] tab 03/09/19 05/11/19 Rx metoprolol succinate 100 mg 150 mg PO BID #270 tab 03/09/19 05/11/19 Rx tablet,extended release 24 hr apixaban 5 mg tablet 5 mg PO BID #60 tab 03/30/19 05/11/19 Rx cephalexin 500 mg capsule 500 mg PO QID #28 cap 05/04/19 05/11/19 Rx cholecalciferol (vitamin D3) 2,000 unit PO DAILY 05/10/19 05/11/19 History sulfamethoxazole-trimethoprim 1 tab PO BID #14 tab 05/10/19 05/11/19 Rx [Bactrim DS] atorvastatin 40 mg PO DAILY 05/11/19 05/11/19 History carvedilol 12.5 mg PO BID 05/11/19 05/11/19 History citalopram 60 mg PO DAILY 05/11/19 05/11/19 History cyanocobalamin (vitamin B-12) 2,000 mcg PO DAILY 05/11/19 05/11/19 History [Vitamin B-12] furosemide 40 mg PO DAILY 05/11/19 05/11/19 History lisinopril 5 mg PO DAILY 05/11/19 05/11/19 History magnesium oxide 400 mg PO DAILY 05/11/19 05/11/19 History Allergies Allergy/AdvReac Type Severity Reaction Status Date / Time Iodinated Contrast Media AdvReac Intermediate Vomiting Verified 05/11/19 14:19 Review of Systems Constitutional Constitutional: Denies excessive sweating, Denies fever(s), Denies headache(s), Denies weakness, Denies weight gain and Denies weight loss Eyes Eyes: Denies change in vision, Denies itchy eyes, Denies loss of vision and Denies other visual disturbances ENT Ears, Nose, Mouth, and Throat: No change in voice, No difficulty swallowing, No dizziness, No ear pain, No headache(s), No hoarseness, No lip swelling, No neck pain, No sore throat, No throat swelling and No tongue swelling Cardiovascular Cardiovascular: Denies chest pain, Denies fainting, Denies fast heart rate, Denies irregular heart rhythm, Denies rapid, pounding, or irregular heartbeat, Denies shortness of breath, Denies shortness of breath with activity and Denies slow heart rate Respiratory Respiratory: Denies chest congestion, Denies cough, Denies hemoptysis, Denies dyspnea, Denies dyspnea on exertion, Denies stridor and Denies wheezing Gastrointestinal Gastrointestinal: Denies abdominal pain, Denies bloating, Denies change in bowel habits, Denies change in stool character, Denies dysphagia, Denies nausea, Denies vomiting and Denies hematemesis Genitourinary Genitourinary: Denies hematuria, Denies difficulty urinating and Denies urinary frequency Musculoskeletal Musculoskeletal: Denies abnormal gait, Denies myalgias, Denies arthralgias, Denies limited range of motion and Denies neck pain Integumentary/Breasts Skin/Breast: Denies bleeding lesions, Denies change in pigmentation, Denies changing lesions, Denies new lesions, Denies rash, Denies skin swelling, Denies sores and Denies jaundice Neurologic Neurologic: Denies abnormal speech, Denies abnormal gait, Denies behavioral changes, Denies confusion, Denies dizziness, Denies syncope, Denies headache(s), Denies loss of vision, Denies memory loss, Denies seizure-like activity, Denies paresthesias and Denies weakness Psychiatric Psychiatric: Denies behavioral changes, Denies change in appetite, Denies confusion, Denies difficulty concentrating, Denies auditory hallucinations, Denies memory loss, Denies mood swings and Denies suicidal ideation Endocrine Endocrine: Denies excessive sweating, Denies flushing, Denies polyuria and Denies palpitations Hematologic/Lymphatic Hematologic/Lymphatic: Denies easy bleeding, Denies easy bruising and Denies lymphadenopathy Allergic/Immunologic Allergic/Immunologic: Denies urticaria, Denies itchy eyes, Denies lip swelling, Denies throat swelling, Denies tongue swelling and Denies wheezing Exam Vital Signs (past 8 hours): - 05/11/19 13:14 Temperature 98.0 F Pulse Rate 63 Respiratory Rate 20 Blood Pressure 119/77 Pulse Oximetry 96 Oxygen Delivery Method Room Air Const General: cooperative, healthy appearing, comfortable, well developed and well groomed Nutritional Appearance: well nourished Orientation: alert, awake and oriented x3 [facility] Head: normocephalic, atraumatic, No cyanosis of lips/distal nose, No raccoon eyes and No periorbital ecchymosis Ears: hearing grossly normal bilaterally and external ears normal Nose: external nose normal and nares normal Face and sinus: normal facial exam and face symmetric Mouth: oral mucosae normal, lip normal and tongue normal Eyes Alignment and Position: alignment normal Periorbital: periorbital findings normal Eyelids: eyelids normal Conjunctivae: conjunctivae normal Sclera: sclerae normal Cornea: corneas normal Pupils: PERRL EOM: EOM intact bilaterally Neck Neck: normal visual inspection, full ROM, trachea midline and No anterior neck swelling Thyroid: not diffusely enlarged Carotids: normal carotid upstroke Lymphatic: No lymphadenopathy Chest Chest: normal inspection of the chest, No crepitus and No tenderness Breast inspection: normal inspection of the breasts Resp Effort & Inspection: normal respiratory effort, able to speak in complete sentences, no audible wheezes, no cough, no retractions and not tachypneic Auscultation: clear to auscultation bilaterally, no rales, no rhonchi, no wheezes and no rubs Percussion: percussion normal Tactile Fremitus: tactile fremitus absent Cardio Palpation: normal PMI Rate: regular rate Rhythm: regular rhythm Heart Sounds: S1 normal, S2 normal and normal, physiologic split S2 Bruits: no carotid bruits Pulses: brachial pulses present and radial pulses present GI Inspection: normal to inspection Palpation: soft and no hepatosplenomegaly Percussion: normal to percussion Auscultation: normal bowel sounds Back/Spine/Pelvis Back: No CVA tenderness Cervical Spine: normal cervical lordosis Thoracic/Lumbar Spine: thoracic and lumbar spine normal to inspection Skin General: no rashes or lesions noted, No excoriations, No induration, No jaundice, No mottling and No petechiae Lesions: no lesions (no worrisome/abl lesions) Rashes: no rashes Trauma: no lacerations or abrasions Wounds: no wounds Hair: normal Neuro General: alert, awake, oriented x3, tone normal and normal light touch, pain and propioception Cranial Nerves: CN's II-XI intact bilaterally Cognition: normal cognition Speech: speech normal Motor: muscle tone normal throughout Sensory Exam: no sensory deficits noted DTR's: Rt Biceps: 2+, Lt Biceps: 2+, Rt Brachioradialis: 2+, Lt Brachioradialis: 2+, Rt Patellar: 2+ and Lt Patellar: 2+ Extrem General: No calf tenderness Right upper extremity: normal to inspection Left upper extremity: normal capillary refill, edema (Entire left hand) and hand (Venous stasis changes distally all 5 fingers) Details: neuromotor exam normal and neurosensory exam normal Right lower extremity: normal to inspection Left lower extremity: normal to inspection Other: Left hand with approximately 4 cm x 1 cm open area with early granulation tissue at the base with surrounding erythema and induration on the dorsal medial aspect over the 5th metacarpal without fluctuance Psych Appearance: grossly normal Mental Status: mental status grossly normal Speech and Movement: speech and movement normal and speech clear Mood: congruent mood Affect: normal affect Attitude: cooperative Thought Process: normal Thought Content: normal Judgment: judgment good Objective Labs Result Diagrams: 05/11/19 13:42 05/11/19 13:42 Labs: Laboratory Results - last 24 hr 05/11/19 05/11/19 05/11/19 13:42 13:42 13:42 WBC 7.1 RBC 5.07 Hgb 16.1 Hct 47.4 MCV 93.6 MCH 31.8 MCHC 34.0 RDW 13.7 Plt Count 154 Neut % (Auto) 58.7 Lymph % (Auto) 25.9 [place] % (Auto) 9.4 Eos % (Auto) 4.8 H Baso % (Auto) 1.2 Neut # (Auto) 4200 Lymph # (Auto) 1800 [place] # (Auto) 700 Eos # (Auto) 300 Baso # (Auto) 100 Sodium 137 Potassium 4.4 Chloride 102 Carbon Dioxide 25 BUN 32 H Creatinine 1.10 Estimated GFR > 60.0 BUN/Creatinine Ratio 29.1 H Glucose 108 Calcium 9.0 Total Bilirubin 1.2 AST 41 ALT 30 Alkaline Phosphatase 117 Total Protein 7.3 Albumin 4.3 Globulin 3.0 Albumin/Globulin Ratio 1.4 Lipase 286 D Procalcitonin 0.07 Assessment & Plan Assessment & Plan narrative: 1. Cellulitis-continue with IV antibiotics. I am going to continue with vancomycin but add 3rd generation cephalosporin for more broad coverage of potential gram-negative organisms. The vancomycin should cover gram-positive organisms. I am hesitant to use a fluoroquinolone given patient's continued use of citalopram so I think this is the best choice. At this point do not think he needs surgical evaluation but may need wound care consultation depending on clinical course 2. History atrial fibrillation-continue usual medications, including his anticoagulation 3. Hypertension-continue usual medications 4. DVT prophylaxis-patient chronically anticoagulated because of his atrial fibrillation. No further therapy indicated 5. Code status-patient requests appropriately so, full code should he have a sudden event
--- NOTE | 2019-05-11 15:40 | PC.NURSE ---
Pt requesting to leave hospital, go to [facility] and have a good sandwich, go to bank, secure belongings in truck then return for admission. Dr. Connolly in to speak w/ patient and told him that he would have to sign out AMA and then return for another ED visit. Pt is not happy with that answer. He asked me why that was, what could be done about it and became quite angry during our discussion. He states he wants to go and relax a bit. I offered medication for anxiety if that was an issue, he refused. Dr. Connolly in to re-evaluate as pt continued to be angry. Pt is deciding to sign out AMA. Of note, after vomiting in CT scan, pt noted to have urinated. He was offered change of clothing and ability to wash up. He refused.
--- NOTE | 2019-05-11 17:20 | PC.NURSE ---
Pt eating dinner tray.
--- NOTE | 2019-05-11 17:53 | PC.NURSE ---
Pt returned to ED @ 10 min after leaving ED. Returned to room 7. Agreeable to admission. Refused offer of pain medication. Dr. Connolly re-evalated. Report called to Olya AHUMADA, transferred to room 230.
[2019-05-11] MEDS: CEFTRIAXONE 1 GM/50 ML FROZ.PIGGY IV (18:48)
[2019-05-11] MEDS: DOCUSATE 100 MG CAPSULE PO (21:01)
[2019-05-11] MEDS: APIXABAN 5 MG TABLET PO (21:01)
[2019-05-11] MEDS: OXYCODONE IR 5 MG TABLET PO (21:02)
[2019-05-11] MEDS: CARVEDILOL 12.5 MG TABLET PO (21:06)
[2019-05-12] VITALS (9 sets, daily range): BP systolic 102–154; BP diastolic 55–112; PULSE 53–60; RESP 16–18; TEMP 36.4–36.8; O2SAT 93–98
[2019-05-12] MEDS: VANCOMYCIN 1,000 MG/200 ML PIGGYBACK 200 MG IV ×2 (02:05→13:43)
[2019-05-12] MEDS: OXYCODONE IR 5 MG TABLET PO ×5 (02:40→20:46)
--- NOTE | 2019-05-12 04:22 | PC.NURSE ---
Pt VSS, pain 7/10 in left wrist. Left wrist warm, dry, erythema, 1-2+ non pitting edema. Pt's wound is open to air and CMS is intact. Call light is in within reach, and bed is low and locked.
[2019-05-12] MEDS: CEFTRIAXONE 1 GM/50 ML FROZ.PIGGY IV ×2 (06:51→18:11)
--- NOTE | 2019-05-12 08:42 | PM.PN.1 ---
Exam Vital Signs (past 8 hours): - 05/12/19 06:35 05/12/19 08:00 Temperature 97.5 F L 97.8 F Pulse Rate 60 55 L Respiratory Rate 16 16 Blood Pressure 102/55 L 113/60 Pulse Oximetry 96 95 Oxygen Delivery Method Room Air Oxygen Flow Rate 0 Objective Labs Result Diagrams: 05/13/19 05:34 05/11/19 13:42 Labs: Laboratory Results - last 24 hr 05/11/19 05/11/19 05/11/19 13:42 13:42 13:42 WBC 7.1 RBC 5.07 Hgb 16.1 Hct 47.4 MCV 93.6 MCH 31.8 MCHC 34.0 RDW 13.7 Plt Count 154 Neut % (Auto) 58.7 Lymph % (Auto) 25.9 [place] % (Auto) 9.4 Eos % (Auto) 4.8 H Baso % (Auto) 1.2 Neut # (Auto) 4200 Lymph # (Auto) 1800 [place] # (Auto) 700 Eos # (Auto) 300 Baso # (Auto) 100 Sodium 137 Potassium 4.4 Chloride 102 Carbon Dioxide 25 BUN 32 H Creatinine 1.10 Estimated GFR > 60.0 BUN/Creatinine Ratio 29.1 H Glucose 108 Calcium 9.0 Total Bilirubin 1.2 AST 41 ALT 30 Alkaline Phosphatase 117 Total Protein 7.3 Albumin 4.3 Globulin 3.0 Albumin/Globulin Ratio 1.4 Lipase 286 D Procalcitonin 0.07 Assessment & Plan Assessment & Plan narrative: Addendum. Patient has chronic atrial fibrillation
--- NOTE | 2019-05-12 08:43 | PM.PN.1 ---
Subjective Subjective Date Patient Seen: 05/12/19 Time Patient Seen: 08:43 Interval history: Wrist cellulitis. Patient admitted yesterday from the ER. He relates that he came to the emergency room yesterday as instructed. To receive more intravenous antibiotics. He was not aware particularly that gotten worse. When the nurses in the ER said gotten worse. He has pain over the top of his hand has persisted swelling is persistent increased over the top of his hand he does have increased range of motion then when he did this past week. During the course of the week he seemed that it stabilize out and he relates that probably got worse either Saturday or Saturday which came to the ER on Saturday. Today he feels it is about the same. Exam Vital Signs (past 8 hours): - 05/12/19 06:35 05/12/19 08:00 Temperature 97.5 F L 97.8 F Pulse Rate 60 55 L Respiratory Rate 16 16 Blood Pressure 102/55 L 113/60 Pulse Oximetry 96 95 Oxygen Delivery Method Room Air Oxygen Flow Rate 0 Narrative Exam Narrative: Patient resting quietly in his hospital bed appears in no distress. Left hand shows edema of the top of his hands fingers up to probably mid forearm. The EMR around his wrist apparently where the cellulitis was at has less redness. The area in question is the dorsum of his wrist area over the distal ulna is where the abrasion is is markedly tender and erythematous and feels fluctuant to me was not able to extrude any purulence but it was markedly tender a has tenderness over the top of his forearm also he does have limited range of motion of flexion extension but able to do all the above. He seemed to have decreased sensation over the little finger on that hand Objective Labs Result Diagrams: 05/11/19 13:42 05/11/19 13:42 Labs: Laboratory Results - last 24 hr 05/11/19 05/11/19 05/11/19 13:42 13:42 13:42 WBC 7.1 RBC 5.07 Hgb 16.1 Hct 47.4 MCV 93.6 MCH 31.8 MCHC 34.0 RDW 13.7 Plt Count 154 Neut % (Auto) 58.7 Lymph % (Auto) 25.9 [place] % (Auto) 9.4 Eos % (Auto) 4.8 H Baso % (Auto) 1.2 Neut # (Auto) 4200 Lymph # (Auto) 1800 [place] # (Auto) 700 Eos # (Auto) 300 Baso # (Auto) 100 Sodium 137 Potassium 4.4 Chloride 102 Carbon Dioxide 25 BUN 32 H Creatinine 1.10 Estimated GFR > 60.0 BUN/Creatinine Ratio 29.1 H Glucose 108 Calcium 9.0 Total Bilirubin 1.2 AST 41 ALT 30 Alkaline Phosphatase 117 Total Protein 7.3 Albumin 4.3 Globulin 3.0 Albumin/Globulin Ratio 1.4 Lipase 286 D Procalcitonin 0.07 Assessment & Plan Assessment & Plan narrative: Patient with persistent cellulitis dorsum of left wrist. Concern now is that there may be some purulence underneath the scab might need to have scabbed lifted and perhaps debrided. Discussion made with Dr. Heck surgeon for her see her later on this morning is placed NPO for the time being. Continue on intravenous Vanco and ceftriaxone
[2019-05-12] MEDS: FUROSEMIDE 40 MG TABLET PO (09:47)
[2019-05-12] MEDS: CHOLECALCIFEROL (VITAMIN D3) 1,000 UNIT TABLET 2000 UNIT PO (09:47)
[2019-05-12] MEDS: LISINOPRIL 5 MG TABLET PO (09:52)
[2019-05-12] MEDS: ACETAMINOPHEN 325 MG TABLET 650 MG PO (09:54)
--- NOTE | 2019-05-12 10:00 | PM.CN ---
History of Present Illness Consult details Date Patient Seen: 05/12/19 Time Patient Seen: 11:02 Chief complaint: left hand infection,IV antibiotics Reason for consult: left wrist cellulitis, possible abscess Requesting provider: Maximiliano Camarena Narrative: This is a 61-year-old man with history of pulmonary hypertension, cardiomyopathy, atrial fibrillation, and chronic CHF. He was admitted to the hospital with a history of having injured his left wrist on a grinding stone approximately 1 week prior. Was seen initially as an outpatient and was not felt to have any serious infection although was started on Keflex. Since then he had progressive swelling pain and discomfort was seen in the ER day prior to admission. Given a single dose of IV vancomycin and told to return on day of admission for re-evaluation. Reportedly the wound did not look any better. He had a CT scan done in the ER which did not show any abscess or fluid collection, but was consistent with cellulitis. He had a large scabbed over area on the dorsal surface of his left wrist, with some surrounding erythema and swelling. He was admitted yesterday for IV antibiotics. Per the patient the wound on his wrist looks the same now as it did when he came in the ER, or slightly better, however he feels that some ecchymosis and erythema on the volar surface of his forearm may be slightly worse today. He denies any significant pain or tenderness. He denies subjective fevers. He is on Eliquis for his atrial fibrillation. ROS: As per HPI. Otherwise 10 system review was negative for any additional positive findings. PE: GENERAL: Well groomed and cooperative. Appears stated age. Answers questions promptly and appropriately. Vital signs noted. HENT: Normocephalic, atraumatic. Hearing intact. Oral mucosa is pink and moist. EYES: Conjunctiva pink, sclera white, no periorbital swelling. CARDIOVASCULAR: Regular rate. No pedal edema. RESPIRATORY: Normal respiratory rate, breathing comfortably on room air. GASTROINTESTINAL: Abdomen soft and non-distended GENITALURINARY: No flank tenderness. MUSCULOSKELETAL: Equal tone and mass bilaterally. SKIN: Left arm with 5 cm scabbed laceration on the dorsal surface of his wrist, with moderate surrounding erythema, and mild tenderness. There is some edema of the surrounding tissue, but no obvious tense abscess at this site. The volar surface of the forearm has small scattered ecchymoses and some mild erythema. The forearm is soft, and easily compressible, without any tension or tenderness. The rest of his visible skin is warm, dry, soft, appropriate color for ethnicity. No other lesions, rashes, or wounds. NEURO: Alert and Oriented X 3. No gross sensory deficits, or cognitive issues. PSYCH: Appropriate affect and mood. [facility] Medical History Atrial fibrillation (Chronic 01/07/17) Cardiomyopathy, nonischemic (Chronic) Chronic congestive heart failure (Chronic 01/07/17) Essential hypertension (Chronic) Left lower lobe pulmonary nodule (Chronic) Mediastinal lymphadenopathy (Chronic 01/07/17) Pulmonary hypertension (Chronic) Social History household members: spouse Smoking Status: Former smoker Meds Home Medications and Allergies Home Medications Medication Instructions Recorded Confirmed Type multivitamin [Multiple Vitamins] 1 tab PO DAILY #0 12/27/16 05/11/19 History omega 7-[id number]-fish oil [Fish Oil] 1,000 mg PO DAILY #0 12/27/16 05/11/19 History amiodarone 200 mg tablet 200 mg PO [facility] tab 03/09/19 05/11/19 Rx metoprolol succinate 100 mg 150 mg PO BID #270 tab 03/09/19 05/11/19 Rx tablet,extended release 24 hr apixaban 5 mg tablet 5 mg PO BID #60 tab 03/30/19 05/11/19 Rx cephalexin 500 mg capsule 500 mg PO QID #28 cap 05/04/19 05/11/19 Rx cholecalciferol (vitamin D3) 2,000 unit PO DAILY 05/10/19 05/11/19 History sulfamethoxazole-trimethoprim 1 tab PO BID #14 tab 05/10/19 05/11/19 Rx [Bactrim DS] atorvastatin 40 mg PO DAILY 05/11/19 05/11/19 History carvedilol 12.5 mg PO BID 05/11/19 05/11/19 History citalopram 60 mg PO DAILY 05/11/19 05/11/19 History cyanocobalamin (vitamin B-12) 2,000 mcg PO DAILY 05/11/19 05/11/19 History [Vitamin B-12] furosemide 40 mg PO DAILY 05/11/19 05/11/19 History lisinopril 5 mg PO DAILY 05/11/19 05/11/19 History magnesium oxide 400 mg PO DAILY 05/11/19 05/11/19 History Allergies Allergy/AdvReac Type Severity Reaction Status Date / Time Iodinated Contrast Media AdvReac Intermediate Vomiting Verified 05/11/19 14:19 Exam Vital Signs (past 8 hours): - 05/12/19 06:35 05/12/19 08:00 Temperature 97.5 F L 97.8 F Pulse Rate 60 55 L Respiratory Rate 16 16 Blood Pressure 102/55 L 113/60 Pulse Oximetry 96 95 Oxygen Delivery Method Room Air Oxygen Flow Rate 0 Objective Labs Result Diagrams: 05/11/19 13:42 05/11/19 13:42 Labs: Laboratory Results - last 24 hr 05/11/19 05/11/19 05/11/19 13:42 13:42 13:42 WBC 7.1 RBC 5.07 Hgb 16.1 Hct 47.4 MCV 93.6 MCH 31.8 MCHC 34.0 RDW 13.7 Plt Count 154 Neut % (Auto) 58.7 Lymph % (Auto) 25.9 [place] % (Auto) 9.4 Eos % (Auto) 4.8 H Baso % (Auto) 1.2 Neut # (Auto) 4200 Lymph # (Auto) 1800 [place] # (Auto) 700 Eos # (Auto) 300 Baso # (Auto) 100 Sodium 137 Potassium 4.4 Chloride 102 Carbon Dioxide 25 BUN 32 H Creatinine 1.10 Estimated GFR > 60.0 BUN/Creatinine Ratio 29.1 H Glucose 108 Calcium 9.0 Total Bilirubin 1.2 AST 41 ALT 30 Alkaline Phosphatase 117 Total Protein 7.3 Albumin 4.3 Globulin 3.0 Albumin/Globulin Ratio 1.4 Lipase 286 D Procalcitonin 0.07 Assessment & Plan Assessment and plan (1) Cellulitis: Problem details: The patient's white count is normal, and he does not have pain out of proportion to exam. I am not convinced that he has an underlying fluid collection that needs to be drained at the site of his injury. The patient feels that it is the same or slightly better from yesterday when the CT scan was done. I will check on him this afternoon and tomorrow morning. If his exam remains equivocal, we may repeat a CT scan. For now I would hold his anticoagulation in case we do elect to surgically drain and debride this. Plan: Continue IV antibiotics Continue serial exams Continue daily CBC Hold Eliquis 15 minutes were spent face to face with the patient. More than 50% of the time was spent in counseling and co-ordination of care regarding his left arm wound and cellulitis. An additional 20 minutes were spent reviewing his notes, imaging, and discussing his case with his primary care doctor. Qualifiers: Laterality: left Site of cellulitis: extremity Site of cellulitis of extremity: upper extremity Qualified Code(s): L03.114 - Cellulitis of left upper limb Current visit: Yes Status: Acute (2) Laceration of left wrist with complication: Problem details: As above Current visit: Yes Status: Acute (3) Cardiomyopathy, nonischemic: Problem details: Patient is on anticoagulation. I have asked Dr. Camarena for permission to hold his Eliquis in case we decided to surgically debride. Dr. Camarena is in agreement with this. Current visit: No Status: Chronic (4) Anticoagulated by anticoagulation treatment: Problem details: As above Current visit: Yes Status: Acute Time Spent With Patient Time with patient: 25 - 35 minutes
[2019-05-12] MEDS: AMIODARONE 200 MG TABLET PO (12:42)
--- NOTE | 2019-05-12 14:03 | PC.NURSE ---
SHIFT SUMMARY: PATIENT ABLE TO TAKE NAPS THROUGHOUT SHIFT. WHEN AWAKE RATES PAIN 8/10. MEDICATING PER EMAR. INSTRUCTED ON ELEVATING LEFT HAND ABOVE HEART LEVEL. GOOD APPETITE. AFEBRILE. CLARIFIED HM MED LIST W/ [facility]ITA SYLVESTER FOR DR. MONROY AND SHE ALSO CONFIRMED W/ DR MONROY. DR MONROY NOTIFIED OF BRADYCARDIA W/ HRR 53 APICAL. INSTRUCTED TO HOLD AM DOSE OF METOPROLOL, GIVE AMIODORONE. DC'D THE MEDS THAT PATIENT STATES HE HASN'T BEEN ORDERED FOR OR TAKING AT HOME; SUCH COREG AND CITALOPRAM. PATIENT IS PLEASANT AND COOPERATIVE.
--- NOTE | 2019-05-12 14:06 | CM.DANOTE ---
Addendum entered by Madhuri Saavedra R.N. 05/14/19 15:35: DCP Continued: EMR Reviewed: CM told during AM rounds patient will be able to D/C today 05/14/2019 home on oral antibiotics. CM met with patient at bedside and he stated understanding and agreed with D/c plan. Madhuri Saavedra RN Original Note: DCP: Case received, EMR reviewed and met with patient. Introduced self and role. Was able to converse with patient to be able to obtain baseline activity level. DCP assessment/template completed with information currently available. Patient is a 69 year old male who admitted yesterday afternoon to the care of the hospital team. PCP: Dr. Camarena. Payer: confirmed: [employer]. Patient came to the hospital via family vehicle secondary to possible infection to patient's left hand. Patient had been seen at his primary care clinic and given oral antibiotics. Patient injured his hand on a pulp grinder, originally, which caused wound. He had noted increased redness up his arm, and had gone to ER for IV antibiotics. He was then admitted here, for diagnosis of Cellulitis. Patient had surgery consult with Dr. Ashford, and there is a possiblity that this area will be drained and debrided. Spoke to patient in his room. Alert and oriented, pleasant and active. 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 He resides with his , Maricruz, and has 11 grand children. He stated, he likes to be active, doesn't want to retire. He is independent, and enjoys spending time with his grandchildren. P: DCP to follow closely. Patient may have surgery, and will need to see if he can go home on oral antibiotics. If he needs prolonged IV antibiotics, he may be able to go over to infusion clinic, since he is active, and not home bound. Flor Uribe, [employer]
[2019-05-12] MEDS: DOCUSATE 100 MG CAPSULE PO (20:46)
[2019-05-12] MEDS: METOPROLOL ER 50 MG TABLET 150 MG PO (20:46)
[2019-05-12] MEDS: ATORVASTATIN 20 MG TABLET 40 MG PO (20:47)
[2019-05-13] VITALS (8 sets, daily range): BP systolic 113–133; BP diastolic 62–72; PULSE 48–80; RESP 16–20; TEMP 36.1–36.6; O2SAT 94–98
[2019-05-13] MEDS: VANCOMYCIN 1,000 MG/200 ML PIGGYBACK 100 MG IV (02:18)
[2019-05-13] MEDS: OXYCODONE IR 5 MG TABLET PO ×5 (02:19→23:28)
--- NOTE | 2019-05-13 05:15 | PC.NURSE ---
Patient's hand does appear more swollen this morning as opposed to beginning of shift last night. Particularly around the laceration site, there is now a more formed type of bubble around site and pt reports slight oozing. Ice given. Will report to next shift to watch as well.
[2019-05-13 06:02] LABS: Add Manual Diff / Slide Review NO; Basophils Absolute Auto 100 /uL (0-100); Basophils Percent Auto 0.9 % (0-2); Eosinophils Absolute Auto 300 /uL (0-450); Eosinophils Percent Auto 4.8 % (2-4); Hemoglobin 14.7 g/dL (13.5-17.5); Lymphocytes Absolute Auto 1600 /uL (1100-4500); Lymphocytes Percent Auto 26.3 % (25-40); Mean Corpuscular HGB Conc 33.5 % (30-36); Mean Corpuscular Hemoglobin 31.7 PG (26-34); Mean Corpuscular Volume 94.6 fL (80-100); Monocytes Absolute Auto 600 /uL (0-900); Neutrophils Absolute Auto 3600 /uL (1500-7000); Platelet Count 126 X10^3/uL (150-400); Red Blood Cell Count 4.65 X10^6/uL (4.5-5.9); Red Cell Distribution Width 13.5 % (11.6-14.8); White Blood Cell Count 6.2 X10^3/uL (4.5-11.0)
[2019-05-13] MEDS: CEFTRIAXONE 1 GM/50 ML FROZ.PIGGY IV ×2 (06:40→18:52)
--- NOTE | 2019-05-13 07:45 | P.PN_ITS ---
Subjective Subjective Date Patient Seen: 05/13/19 Time Patient Seen: 07:45 Interval history: Worsening pain, tenderness, and swelling in the left arm overnight. Exam Vital Signs (past 8 hours): - 05/13/19 05:13 Temperature 97.9 F Pulse Rate 53 L Respiratory Rate 16 Blood Pressure 115/62 Pulse Oximetry 95 Oxygen Delivery Method Room Air Oxygen Flow Rate 0 Narrative Exam Narrative: PE: GENERAL: Well groomed and cooperative. Appears stated age. Answers questions promptly and appropriately. Vital signs noted. HENT: Normocephalic, atraumatic. Hearing intact. Oral mucosa is pink and moist. EYES: Conjunctiva pink, sclera white, no periorbital swelling. CARDIOVASCULAR: Regular rate. No pedal edema. RESPIRATORY: Normal respiratory rate, breathing comfortably on room air. GASTROINTESTINAL: Abdomen soft and non-distended GENITALURINARY: No flank tenderness. MUSCULOSKELETAL: Equal tone and mass bilaterally. SKIN: Left arm with 5 cm scabbed laceration on the dorsal surface of his wrist, with increased moderate surrounding erythema, and increased tenderness. There is some edema of the surrounding tissue, but no obvious tense abscess at this site. The volar surface of the forearm has small scattered ecchymoses and some mild erythema. The forearm is soft, and easily compressible, without any tension or tenderness. The rest of his visible skin is warm, dry, soft, appropriate color for ethnicity. No other lesions, rashes, or wounds. NEURO: Alert and Oriented X 3. No gross sensory deficits, or cognitive issues. PSYCH: Appropriate affect and mood. Objective Labs Result Diagrams: 05/13/19 05:34 05/11/19 13:42 Labs: Laboratory Results - last 24 hr 05/13/19 05:34 WBC 6.2 RBC 4.65 Hgb 14.7 Hct 44.0 MCV 94.6 MCH 31.7 MCHC 33.5 RDW 13.5 Plt Count 126 L Neut % (Auto) 59.0 Lymph % (Auto) 26.3 [place] % (Auto) 9.0 Eos % (Auto) 4.8 H Baso % (Auto) 0.9 Neut # (Auto) 3600 Lymph # (Auto) 1600 [place] # (Auto) 600 Eos # (Auto) 300 Baso # (Auto) 100 Assessment & Plan Assessment and plan (1) Laceration of left wrist with complication: Problem details: As above Current visit: Yes Status: Acute Assessment & Plan narrative: This is a 61-year-old man with a left arm lacer ation with surrounding erythema, which seems to have worsened between yesterday and today. It is more tender and that edema in his hand has increased. Recommend that we continue the current antibiotics, make him NPO, re-scanned the arm with IV contrast, and consider operative incision and debridement this afternoon depending on what is found on the CT scan. Plan: NPO now except for meds Re scan left arm with IV contrast--I have contacted Dr. Camarena by cell phone and left a message asking for permission to do this scan. I will be in the operating room for the next 1-2 hours, and would appreciate if the scan could be ordered once approved by Dr. Camarena. Continue IV antibiotics Time Spent With Patient Time with patient: 15-24 minutes
--- NOTE | 2019-05-13 08:33 | PM.PN.1 ---
Subjective Subjective Date Patient Seen: 05/13/19 Time Patient Seen: 08:33 Interval history: Left hand cellulitis. Patient feels like it is causing more pain. Seems more swollen. He thought there might be some drainage from around the laceration.. She would move his fingers no change in that. Dorsum of the hand seems more painful Exam Vital Signs (past 8 hours): - 05/13/19 05:13 Temperature 97.9 F Pulse Rate 53 L Respiratory Rate 16 Blood Pressure 115/62 Pulse Oximetry 95 Oxygen Delivery Method Room Air Oxygen Flow Rate 0 Narrative Exam Narrative: Dorsum of the left hand he has the aforementioned diagonal abrasion that is unchanged. The there is a increasing edema and fluctuance around the laceration itself of the erythema has increased over the dorsum of hand. The hand itself is more edematous than the was yesterday. Still able to flex and extend his fingers but not fully. The purplish discoloration of his volar aspect of his arm is unchanged. Does have pulses. He remains to be afebrile Objective Labs Result Diagrams: 05/13/19 05:34 05/11/19 13:42 Labs: Laboratory Results - last 24 hr 05/13/19 05:34 WBC 6.2 RBC 4.65 Hgb 14.7 Hct 44.0 MCV 94.6 MCH 31.7 MCHC 33.5 RDW 13.5 Plt Count 126 L Neut % (Auto) 59.0 Lymph % (Auto) 26.3 [place] % (Auto) 9.0 Eos % (Auto) 4.8 H Baso % (Auto) 0.9 Neut # (Auto) 3600 Lymph # (Auto) 1600 [place] # (Auto) 600 Eos # (Auto) 300 Baso # (Auto) 100 white count is noted and is normal Assessment & Plan Assessment & Plan narrative: Cellulitis of the dorsal left hand secondary to superficial abrasion of seemingly has progressed. The cellulitis of of the upper arm has improved however. The top of his hands more edematous and more tender. The lesion is self looks unchanged but the skin around the lesion is more edematous and more fluctuant. As per Dr. Heck CT with contrast to be ordered and presumably be laceration will be explored this afternoon up lifting the scabbed and debriding appropriate tissue yet to be determined. Patient is placed NPO
--- NOTE | 2019-05-13 09:44 | DI.CT.S_ITS ---
PROCEDURE: CT UE LT W CON INDICATIONS: wrist abscess TECHNIQUE: After the administration of intravenous contrast, 3 mm axial sections acquired of the left forearm and left hand, with coronal and sagittal reformats. COMPARISON: None. FINDINGS: Image quality: Diagnostic. Bones: Patient is status post internal fixation of the left proximal first metacarpal shaft and metacarpal base with lateral fixation plates and [address] No gross hardware loosening or failure is seen. Moderate to severe osteoarthritic changes are noted throughout hand and wrist more prominent at the first CMC joint and first MCP joint with near-complete loss of joint space, subchondral sclerosis and prominent intraosseous cyst formation. There is a slightly comminuted nondisplaced fracture of the triquetrum. Slightly avulsed and dorsally displaced fracture involving dorsal aspect of the hamate is also seen. Healing first metacarpal base fracture is noted. No other fracture or dislocation is seen. No suspicious intraosseous lesion. No gross bony erosive changes are noted. Soft tissues: There is soft tissue edema and swelling along ulnar aspect of the visualized forearm extending to the wrist level. No drainable fluid collection is identified. 1.6 x 2.6 x 3.4 cm heterogeneously dense structure over dorsal and ulnar aspect of left wrist at the level of proximal carpal row. No peripheral enhancement is seen. No other soft tissue mass or fluid collection is seen. IMPRESSION: 1. Acute appearing fractures involving triquetrum and dorsal aspect of hamate as described above. Healing first metacarpal base fracture with prior ORIF. No gross hardware loosening or failure is seen. 2. 1.6 x 2.6 x 3.4 cm heterogeneously hyperdense structure over dorsal and ulnar aspect of left wrist at the level of triquetrum, most likely represent soft tissue hematoma given the presence of fracture in this area. Infected collection cannot be entirely excluded. No discrete drainable abscess collection is identified. Mild soft tissue swelling and edema along the aspect of forearm. 3. Osteoarthritic changes throughout hand and wrist. No radiographic evidence of osteomyelitis. Dictated by: Ryan Worthy M.D. on 05/13/2019 at 10:48 Approved by: Ryan Worthy M.D. on 05/13/2019 at 11:03
[2019-05-13] MEDS: ONDANSETRON 8 MG in SODIUM CHLORIDE 0.9% 50 ML 216 ML IV (09:55)
[2019-05-13] MEDS: SODIUM CHLORIDE 0.9% FLUSH 10 ML IV (09:56)
--- NOTE | 2019-05-13 11:21 | DI.MRI.S_ITS ---
PROCEDURE: MR WRIST LT WO/W CON INDICATIONS: ?abscess? TECHNIQUE: Noncontrast coronal proton density fast spin echo and T2 fast spin echo with fat saturation; coronal 3-D gradient echo, axial T1 spin echo and T2 fast spin echo with fat saturation, axial T1 spin echo with fat saturation, sagittal T1 spin echo through the wrist. Post-contrast axial, coronal, and sagittal T1 spin echo with fat saturation through the wrist. COMPARISON: [facility], CT, CT UE LT W CON, 05/13/2019, 10:06. [facility], CT, CT UE LT W CON, 05/11/2019, 14:00. [facility], CR, XR WRIST LT MIN 3V, 05/04/2019, 15:00. [facility], CR, XR HAND LT MIN 3V, 05/04/2019, 14:59. [facility], [place], PET NECK TO MID THIGH STD, 01/08/2017, 9:03. FINDINGS: Image quality: Diagnostic Bones: The known fractures involving the triquetrum and hamate are much better characterized on the most recent CT of the the wrist from 05/13/19. These fractures are not evident on the CT from 05/11/19 related to severe motion artifact through this region. Additional focal areas of marrow edema are evident involving the lunate, scaphoid, capitate, and trapezoid. Degenerative cystic changes are noted involving the metacarpophalangeal joints of all 5 digits. Postoperative changes related to fusion of the 1st carpal-metacarpal joint are noted, but not well-characterized related to metallic susceptibility artifact. Degenerative cystic changes are also evident involving the distal radioulnar joint. No suspicious bony enhancement or definitive bony lesions are appreciated. Soft tissues: Extensive soft tissue edema about the wrist is identified with areas of subcutaneous and muscular edema. A marker was placed along the ulnar aspect of the wrist. There may be a small defect involving the skin at this location. Phlegmonous soft tissue changes/edema at this site is evident, which may represent an early loculating fluid collection that may measure up to approximately 2.3 x 1.4 x 2.0 cm (image 27, series 6 image 10, series 3). No definite central enhancement of this lesion is identified on the postcontrast images. There maybe slight peripheral enhancement evident. No significant atrophy involving intrinsic muscles of the hand are appreciated. Please note that the ligamentous, tendinous, and cartilaginous structures of the breast are not well dilated related to the large [id number]. No definite full-thickness tendon tears are evident. The median nerve through the tarsal tunnel appears to be within normal limits. However, there is slight convex bulge of the contents of the carpal tunnel, including the flexor retinaculum. A few mildly prominent vessels within the region of the carpal tunnel are present. IMPRESSION: 1. No convincing evidence of osteomyelitis. Short interval followup radiographic imaging and possible followup MRI imaging would be of value. 2. Extensive subcutaneous edema about the hand and wrist is most suggestive of cellulitis. 3. Phlegmonous soft tissue changes along the ulnar aspect of the wrist a represent a developing fluid collection. Soft tissue granuloma or less likely soft tissue mass is difficult to exclude. A followup MRI of the wrist in 3 months with contrast is recommended. 4. Hamate and triquetral fractures are better seen on the CT from 05/13/19. 5. Scattered areas of marrow edema throughout the imaged osseous structures and are felt to represent areas of degenerative cystic change. 6. Postoperative changes with a tree 1st carpometacarpal joint fusion. Dictated by: Larry Baker M.D. on 05/13/2019 at 11:54 Approved by: Larry Baker M.D. on 05/13/2019 at 12:24
--- NOTE | 2019-05-13 13:02 | PC.NURSE ---
Dr Barrera in to assess Pt r/t FX L hand/wrist..Reviewed CT & MRI results, informed mPt of Fx. Pt remains npo for possible surgery. L hand remains swollen, but visibly less swollen than it was this AM. Pt sleeps most the time. 1315 now at bedside.
[2019-05-13 14:11] LABS: Vancomycin Trough 9.6 ug/mL (10-20)
--- NOTE | 2019-05-13 14:21 | PC.NURSE ---
[address] Camarena, reported the consistant low ht rt 0f 48-54 , . and Pt remains NPO, No IVF on, Pt hx a fib, Tele? . Dr camarena gave orders to cover this. 1425 Tele on now.
[2019-05-13] MEDS: SODIUM CHLORIDE 0.9% 1,000 ML 100 ML IV (14:25)
[2019-05-13] MEDS: VANCOMYCIN 1,500 MG/300 ML FROZ.PIGGY 200 MG IV (15:15)
[2019-05-13] MEDS: VANCOMYCIN TROUGH 1 REQUEST MISC (15:16)
--- NOTE | 2019-05-13 15:53 | P.CONS_ITS ---
History of Present Illness Consult details Date Patient Seen: 05/13/19 Time Patient Seen: 15:53 Chief complaint: left hand infection,IV antibiotics Reason for consult: Left hand fracture and swelling Requesting provider: Maximiliano Camarena Narrative: 69-year-old male with left hand pain and swelling. Approximately 10 days ago he was using a needle grinder stone that came loose and flew off and hit him in the left hand. Right-hand dominant. He had a large laceration over the back of his left hand and pain. He had enough swelling that he was started on oral antibiotics. He came into the emergency room and was given a dose of IV antibiotics. A CT scan of the entire arm just showed some swelling in the hand. He returned to the emergency room with ongoing pain and swelling and was admitted for IV antibiotics. As this did not seem to be getting any better, a repeat CT scan was taken, this time focusing on the hand, which showed fractures in the hand and hematoma. I was asked to see the patient for evaluation for rm lulitis or an abscess that would require surgical treatment. He thinks the swelling is actually a little bit better at this point. He denies any fever or chills or any ongoing drainage. [facility] Medical History Anticoagulated by anticoagulation treatment (Acute) Atrial fibrillation (Chronic 01/07/17) Cardiomyopathy, nonischemic (Chronic) Cellulitis (Acute) Chronic congestive heart failure (Chronic 01/07/17) Essential hypertension (Chronic) Left lower lobe pulmonary nodule (Chronic) Mediastinal lymphadenopathy (Chronic 01/07/17) Pulmonary hypertension (Chronic) Social History household members: spouse Smoking Status: Former smoker Meds Home Medications and Allergies Home Medications Medication Instructions Recorded Confirmed Type multivitamin [Multiple Vitamins] 1 tab PO DAILY #0 12/27/16 05/11/19 History omega 7-yyi-juk-fish oil [Fish Oil] 1,000 mg PO DAILY #0 12/27/16 05/11/19 History amiodarone 200 mg tablet 200 mg [facility] tab 03/09/19 05/11/19 Rx metoprolol succinate 100 mg 150 mg PO BID #270 tab 03/09/19 05/11/19 Rx tablet,extended release 24 hr apixaban 5 mg tablet 5 mg PO BID #60 tab 03/30/19 05/11/19 Rx cephalexin 500 mg capsule 500 mg PO QID #28 cap 05/04/19 05/11/19 Rx cholecalciferol (vitamin D3) 2,000 unit PO DAILY 05/10/19 05/11/19 History sulfamethoxazole-trimethoprim 1 tab PO BID #14 tab 05/10/19 05/11/19 Rx [Bactrim DS] atorvastatin 40 mg PO DAILY 05/11/19 05/11/19 History carvedilol 12.5 mg PO BID 05/11/19 05/11/19 History citalopram 60 mg PO DAILY 05/11/19 05/11/19 History cyanocobalamin (vitamin B-12) 2,000 mcg PO DAILY 05/11/19 05/11/19 History [Vitamin B-12] furosemide 40 mg PO DAILY 05/11/19 05/11/19 History lisinopril 5 mg PO DAILY 05/11/19 05/11/19 History magnesium oxide 400 mg PO DAILY 05/11/19 05/11/19 History Allergies Allergy/AdvReac Type Severity Reaction Status Date / Time Iodinated Contrast Media AdvReac Intermediate Vomiting Verified 05/11/19 14:19 Review of Systems Constitutional Constitutional: Denies chills and Denies fever(s) Cardiovascular Cardiovascular: Denies chest pain Respiratory Respiratory: Denies cough and Denies wheezing Musculoskeletal Musculoskeletal: Denies numbness Neurologic Neurologic: Denies numbness Psychiatric Psychiatric: Denies change in appetite Endocrine Endocrine: Denies change in body appearance Hematologic/Lymphatic Hematologic/Lymphatic: Reports easy bleeding (On Eliquis for atrial fibrillation) Allergic/Immunologic Allergic/Immunologic: Denies wheezing Exam Vital Signs (past 8 hours): - 05/13/19 08:00 05/13/19 13:00 05/13/19 15:52 Temperature 97 F L 97.8 F 97.1 F L Pulse Rate 49 L 48 L 49 L Respiratory Rate 16 17 20 Blood Pressure 133/72 115/68 124/69 Pulse Oximetry 96 96 95 Oxygen Delivery Method Room Air Oxygen Flow Rate 0 Const Orientation: alert and oriented x3 Cardio Rate: regular rate Rhythm: regular rhythm Extrem Other: Left hand 4 cm oblique laceration over the ulnar border and dorsal a spect. 6 mm wide scab over this region. Approximately 5 mm surrounding swelling with some erythema. Palpable soft mass underneath this. Significant edema throughout the entire hand and fingers with old ecchymosis starting to switch over to yellowing color through the entire dorsum of the hand to the dorsal fingers. 2+ pulses and good capillary refill. Intact sensation through all fingers. 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 Very tender to palpation over the dorsal carpal row. Objective Imaging CT scan of the wrist: My impression: Shows nondisplaced fracture through the triquetrum and hamate. Evidence of hematoma dorsal and ulnar to this MRI of the left wrist: My impression: Edema in the hamate triquetrum consistent with fracture. Surrounding soft tissue swelling but no discrete fluid-filled or significant rim enhancing lesion consistent with an abscess. Significant edema throughout the dorsal hand Labs Result Diagrams: 05/13/19 05:34 05/11/19 13:42 Labs: Laboratory Results - last 24 hr 05/13/19 05/13/19 05:34 13:40 WBC 6.2 RBC 4.65 Hgb 14.7 Hct 44.0 MCV 94.6 MCH 31.7 MCHC 33.5 RDW 13.5 Plt Count 126 L Neut % (Auto) 59.0 Lymph % (Auto) 26.3 [place] % (Auto) 9.0 Eos % (Auto) 4.8 H Baso % (Auto) 0.9 Neut # (Auto) 3600 Lymph # (Auto) 1600 [place] # (Auto) 600 Eos # (Auto) 300 Baso # (Auto) 100 Vancomycin Trough 9.6 L Assessment & Plan Assessment & Plan narrative: Nondisplaced triquetrum and hamate fractures. I placed him in a wrist splint to mobilize him. This will not require surgical intervention but should heal fine in a splint. I saw him earlier today before the MRI was back and since then, he has had decreased swelling in the hand as well as some wrinkling of the skin indicating the swelling is going down. Dorsal swelling of the hand. I think this is much more consistent with a hematoma and not an abscess over the laceration area. All the dorsal swelling is most consistent with edema from an untreated wrist fracture. I think the swelling is going to greatly decreased with the mobilization of the wrist fracture. He has been afebrile and his white count has been normal throughout. I am going to check a CRP and ESR, which will probably slightly elevated from the fracture but they can give us a baseline. I will take down the dressing and recheck him again in the morning. As long as this continues to improve, I do not think there is going to be any need for surgical intervention for any debridement or drainage.
[2019-05-13 18:27] LABS: Erythrocyte Sedimentation Rate 4 MM/HR (0-15)
[2019-05-13] MEDS: APIXABAN 5 MG TABLET PO (20:15)
[2019-05-13] MEDS: ATORVASTATIN 20 MG TABLET 40 MG PO (20:15)
[2019-05-13] MEDS: DOCUSATE 100 MG CAPSULE PO (20:16)
[2019-05-14 00:20] VITALS: BP 135/76; PULSE 89; RESP 17; TEMP 37.4; O2SAT 93
[2019-05-14] MEDS: VANCOMYCIN 1,500 MG/300 ML FROZ.PIGGY 100 MG IV (02:18)
[2019-05-14 03:30] VITALS: BP 131/96; PULSE 91; RESP 16; TEMP 37; O2SAT 97
[2019-05-14] MEDS: SODIUM CHLORIDE 0.9% 1,000 ML 100 ML IV (05:34)
[2019-05-14 05:54] LABS: Add Manual Diff / Slide Review NO; Basophils Absolute Auto 100 /uL (0-100); Basophils Percent Auto 1.1 % (0-2); Eosinophils Absolute Auto 300 /uL (0-450); Eosinophils Percent Auto 4.8 % (2-4); Hematocrit 46.9 % (41-53); Hemoglobin 15.9 g/dL (13.5-17.5); Lymphocytes Absolute Auto 1800 /uL (1100-4500); Lymphocytes Percent Auto 29.1 % (25-40); Mean Corpuscular HGB Conc 33.9 % (30-36); Mean Corpuscular Hemoglobin 31.9 PG (26-34); Mean Corpuscular Volume 94.1 fL (80-100); Monocytes Absolute Auto 500 /uL (0-900); Monocytes Percent Auto 7.8 % (3-14); Neutrophils Absolute Auto 3500 /uL (1500-7000); Neutrophils Percent Auto 57.2 % (50-75); Platelet Count 128 X10^3/uL (150-400); Red Blood Cell Count 4.99 X10^6/uL (4.5-5.9); Red Cell Distribution Width 13.6 % (11.6-14.8); White Blood Cell Count 6.1 X10^3/uL (4.5-11.0)
[2019-05-14 06:08] LABS: BUN Creatinine Ratio 18.2 (6-22); Blood Urea Nitrogen 20 mg/dL (9-20); Calcium 8.4 mg/dL (8.4-10.2); Carbon Dioxide 27 mmol/L (22-32); Chloride 101 mmol/L (98-107); Estimated Glomerular Filt Rate > 60.0 mL/min (>60); Glucose 104 mg/dL (80-110); HEMOLYSIS < 15 (0-50); Potassium 4.4 mmol/L (3.4-5.1); Sodium 136 mmol/L (137-145)
[2019-05-14] MEDS: OXYCODONE IR 5 MG TABLET PO (06:41)
[2019-05-14] MEDS: CEFTRIAXONE 1 GM/50 ML FROZ.PIGGY IV (06:43)
[2019-05-14 07:00] VITALS: O2SAT 97
[2019-05-14 08:00] VITALS: BP 144/110; PULSE 98; RESP 14; TEMP 36.6; O2SAT 94
[2019-05-14] MEDS: AMIODARONE 200 MG TABLET PO (08:10)
--- NOTE | 2019-05-14 08:11 | PM.PN.1 ---
Subjective Subjective Date Patient Seen: 05/14/19 Time Patient Seen: 08:11 Interval history: He is doing better today. Pain is much improved mobilized in the splint. Exam Vital Signs (past 8 hours): - 05/14/19 00:20 05/14/19 03:30 Temperature 99.3 F 98.6 F Pulse Rate 89 91 H Respiratory Rate 17 16 Blood Pressure 135/76 131/96 H Pulse Oximetry 93 97 Oxygen Delivery Method Room Air Oxygen Flow Rate 0 Const Orientation: alert and oriented x3 Extrem Other: Left hand-splint taken down and re-evaluated. Greatly decreased swelling in the dorsum of the hand. 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 Tender over the dorsum of the hand. Splint replaced Objective Labs Result Diagrams: 05/14/19 05:30 05/14/19 05:30 Labs: Laboratory Results - last 24 hr 05/13/19 05/13/19 05/13/19 13:40 17:55 17:55 WBC RBC Hgb Hct MCV MCH MCHC RDW Plt Count Neut % (Auto) Lymph % (Auto) [place] % (Auto) Eos % (Auto) Baso % (Auto) Neut # (Auto) Lymph # (Auto) [place] # (Auto) Eos # (Auto) Baso # (Auto) ESR 4 Sodium Potassium Chloride Carbon Dioxide BUN Creatinine Estimated GFR BUN/Creatinine Ratio Glucose Calcium C-Reactive Protein 1.0 Vancomycin Trough 9.6 L 05/14/19 05/14/19 05:30 05:30 WBC 6.1 RBC 4.99 Hgb 15.9 Hct 46.9 MCV 94.1 MCH 31.9 MCHC 33.9 RDW 13.6 Plt Count 128 L Neut % (Auto) 57.2 Lymph % (Auto) 29.1 [place] % (Auto) 7.8 Eos % (Auto) 4.8 H Baso % (Auto) 1.1 Neut # (Auto) 3500 Lymph # (Auto) 1800 [place] # (Auto) 500 Eos # (Auto) 300 Baso # (Auto) 100 ESR Sodium 136 L Potassium 4.4 Chloride 101 Carbon Dioxide 27 BUN 20 Creatinine 1.10 Estimated GFR > 60.0 BUN/Creatinine Ratio 18.2 Glucose 104 Calcium 8.4 C-Reactive Protein Vancomycin Trough Assessment & Plan Assessment & Plan narrative: Carpal fractures of left wrist. Now that he is immobilized, his pain is much better and the swelling is going down. I checked infection labs and they were in the normal range. I stopped his antibiotics as I do not think there is any sign of infection, this is all hematoma and swelling associated with a non mobilized fracture this should greatly improved as the hand is now mobilized. He may discharge home today. I would like to have him follow up in my office in 1 week. If the swelling is down enough, we can convert him over to a removable wrist splint that he could take off for hygiene purposes only at that point.
[2019-05-14] MEDS: METOPROLOL ER 50 MG TABLET 150 MG PO (08:12)
[2019-05-14] MEDS: DOCUSATE 100 MG CAPSULE PO (08:19)
[2019-05-14] MEDS: CHOLECALCIFEROL (VITAMIN D3) 1,000 UNIT TABLET 2000 UNIT PO (08:19)
[2019-05-14] MEDS: APIXABAN 5 MG TABLET PO (08:20)
[2019-05-14] MEDS: LISINOPRIL 5 MG TABLET PO (08:20)
[2019-05-14] MEDS: FUROSEMIDE 40 MG TABLET PO (08:20)
--- NOTE | 2019-05-14 09:45 | PM.DS.1 ---
History of Present Illness History of Present Illness Chief complaint: left hand infection,IV antibiotics Discharge Providers Provider Date of admission: 05/12/19 10:11 Discharge Date: 05/14/19 Primary care physician: Maximiliano Camarena MD Consults: 05/13/19 11:21 Consult to Physician Urgent Comment: Consulting Provider: Darion Barrera Reason for consultation: wrist fx. ?abscess Has provider been notified: Yes 05/13/19 11:22 Consult to Physician Routine Comment: Consulting Provider: Darion Barrera Reason for consultation: wrist fx ?abscess? Discharge provider: Maximiliano Camarena MD Summary Hospital Course Discharge Diagnosis: 1. Fracture carpal bones. 2. Superficial abrasion//laceration 3. Superficial cellulitis resolved. 4. Pre-existing atrial fibrillation. 5. Pre-existing hypertension. 6. Pre-existing anticoagulation. 7. Pre-existing hyperlipidemia Hospital Course: Patient was admitted for evaluation of left wrist laceration. Initially felt to be infection at felt to have cellulitis because of the redness and the pain. Was admitted and given intravenous vancomycin and ceftriaxone. Seen in consultation by Dr. Heck general surgeon concerned about being abscess. Additionally was seen by Dr. Barrera orthopedist having found that there were 2 carpal bones that were fracture. MRI of the left wrist showed no abscess. All the swelling was all hematoma. The treatment there for was splinting of the wrist discontinuation of the antibiotics as the and impression was the cellulitis had resolved. Patient will presumably remain in the splint for probably 6-8 weeks to be followed up by the orthopedic people Status at Discharge Cognitive/behavioral status at discharge: oriented and at baseline, oriented Functional status at discharge: independent ambulation Overall status at discharge: patient is not back to baseline Exam Vital Signs (past 8 hours): - 05/14/19 03:30 05/14/19 08:00 Temperature 98.6 F 97.9 F Pulse Rate 91 H 98 H Respiratory Rate 16 14 Blood Pressure 131/96 H 144/110 H Pulse Oximetry 97 94 Oxygen Delivery Method Room Air Oxygen Flow Rate 0 Objective Labs Result Diagrams: 05/14/19 05:30 05/14/19 05:30 Labs: Laboratory Results - last 24 hr 05/13/19 05/13/19 05/13/19 13:40 17:55 17:55 WBC RBC Hgb Hct MCV MCH MCHC RDW Plt Count Neut % (Auto) Lymph % (Auto) [place] % (Auto) Eos % (Auto) Baso % (Auto) Neut # (Auto) Lymph # (Auto) [place] # (Auto) Eos # (Auto) Baso # (Auto) ESR 4 Sodium Potassium Chloride Carbon Dioxide BUN Creatinine Estimated GFR BUN/Creatinine Ratio Glucose Calcium C-Reactive Protein 1.0 Vancomycin Trough 9.6 L 05/14/19 05/14/19 05:30 05:30 WBC 6.1 RBC 4.99 Hgb 15.9 Hct 46.9 MCV 94.1 MCH 31.9 MCHC 33.9 RDW 13.6 Plt Count 128 L Neut % (Auto) 57.2 Lymph % (Auto) 29.1 [place] % (Auto) 7.8 Eos % (Auto) 4.8 H Baso % (Auto) 1.1 Neut # (Auto) 3500 Lymph # (Auto) 1800 [place] # (Auto) 500 Eos # (Auto) 300 Baso # (Auto) 100 ESR Sodium 136 L Potassium 4.4 Chloride 101 Carbon Dioxide 27 BUN 20 Creatinine 1.10 Estimated GFR > 60.0 BUN/Creatinine Ratio 18.2 Glucose 104 Calcium 8.4 C-Reactive Protein Vancomycin Trough Discharge Plan Discharge Plan Patient Disposition: Home Discharge comment: f/u appt w Dr. Barrera 1 week Discharge Med Rec/Prescriptions Prescriptions: New oxycodone 5 mg tablet 5 mg PO Q6H PRN (Reason: pain) Qty: 20 RF: 0 Continued multivitamin [Multiple Vitamins] 1 EACH tablet 1 tab PO DAILY Qty: 0 RF: 0 omega 8-zgl-dus-fish oil [Fish Oil] 1,000 MG capsule 1,000 mg PO DAILY Qty: 0 RF: 0 metoprolol succinate 100 mg tablet extended release 24 hr 150 mg PO BID Qty: 270 RF: 0 amiodarone 200 mg tablet 200 mg PO [facility] Qty: 90 RF: 0 Eliquis 5 mg tablet 5 mg PO BID Qty: 60 RF: 5 cholecalciferol (vitamin D3) 2,000 unit Capsule 2,000 unit PO DAILY RF: 0 carvedilol 12.5 mg tablet 12.5 mg PO BID RF: 0 citalopram 20 mg tablet 60 mg PO DAILY RF: 0 furosemide 40 mg tablet 40 mg PO DAILY RF: 0 lisinopril 5 mg tablet 5 mg PO DAILY RF: 0 atorvastatin 20 mg tablet 40 mg PO DAILY RF: 0 cyanocobalamin (vitamin B-12) [Vitamin B-12] 2,000 mcg Tablet Extended Release 2,000 mcg PO DAILY RF: 0 magnesium oxide 400 mg magnesium Tablet 400 mg PO DAILY RF: 0 Discontinued cephalexin [Keflex] 500 mg capsule 500 mg PO QID Qty: 28 RF: 0 sulfamethoxazole-trimethoprim [Bactrim DS] 800-160 mg tablet 1 tab PO BID Qty: 14 RF: 0 Follow up/Referrals: Maximiliano Camarena MD [Primary Care Provider] - Provider Discharge Instructions Diet: Diet as Tolerated Visit Report/Discharge Packet Instructions: Cellulitis Stand Alone Forms: Against Medical Advice Discharge Data Primary Care Provider: Maximiliano Camarena
[2019-05-14 12:00] VITALS: BP 117/88; PULSE 83; RESP 14; TEMP 36.3; O2SAT 93
== END 2019-05-14 12:40 | disposition home or self-care (01) | DRG 603 ==
LOC: ED 14:50 → AC 14:55
PROVIDERS: Orthopaedic Surgery; Admitting Provider Internal Medicine; Emergency Provider Emergency Medicine; PCP Family Medicine; Visit Provider Family Medicine
DX: L03.114 Cellulitis of left upper limb (principal); I42.8 Other cardiomyopathies; I48.20 Chronic atrial fibrillation, unspecified; I27.20 Pulmonary hypertension, unspecified; I11.0 Hypertensive heart disease with heart failure; I50.9 Heart failure, unspecified; S62.145A Nondisplaced fracture of body of hamate [unciform] bone, left wrist, initial encounter for closed fracture; S62.115A Nondisplaced fracture of triquetrum [cuneiform] bone, left wrist, initial encounter for closed fracture; S61.512A Laceration without foreign body of left wrist, initial encounter; Z87.891 Personal history of nicotine dependence; X58.XXXA Exposure to other specified factors, initial encounter; W31.1XXA Contact with metalworking machines, initial encounter; Z23 Encounter for immunization
CPT/HCPCS: 36415; 73201; 73223; 80048; 80053; 80202; 81003; 83605; 83690; 84145; 85025; 85610; 85651; 85730; 86140; 87040; 90471; 93005; 96365; 96366; 96375; 99219; 99231; 99232; 99238; 99283; 99284; G0378; 90715; J2405; Q9967

== ENCOUNTER → 2020-02-15 12:00 | Outpatient (CLI) | payer MEDICARE, SELFPAY ==
[2019-05-11 19:22] VITALS: BMI 31.6
[2020-02-15 13:22] LABS: Cholesterol 193 mg/dL (140-199); HDL Cholesterol 41 mg/dL (40-60); LDL Cholesterol Calculated 114 mg/dL (<100); Triglycerides 191 mg/dL (35-150)
== END ==
PROVIDERS: PCP Family Medicine; Referring Provider Family Medicine; Visit Provider Family Medicine
DX: E78.2 Mixed hyperlipidemia (principal)
CPT/HCPCS: 36415; 80061

== ENCOUNTER → 2020-06-03 12:21 | Outpatient (CLI) | payer MEDICARE, SELFPAY ==
[2019-05-11 19:22] VITALS: BMI 31.6
[2020-06-03 13:07] LABS: Alanine Aminotransferase 36 IU/L (<50); Albumin 4.2 g/dL (3.5-5.0); Albumin Globulin Ratio 1.2 (1.0-2.8); Alkaline Phosphatase 121 U/L (38-126); Aspartate Aminotransferase 35 IU/L (17-59); BUN Creatinine Ratio 24.1 (6-22); Bilirubin Total 0.7 mg/dL (0.2-1.3); Blood Urea Nitrogen 32 mg/dL (9-20); Calcium 9.3 mg/dL (8.4-10.2); Carbon Dioxide 30 mmol/L (22-32); Chloride 103 mmol/L (98-107); Estimated Glomerular Filt Rate 53.3 mL/min (>60); Globulin 3.5 g/dL (1.7-4.1); Glucose 147 mg/dL (80-110); HEMOLYSIS 21 (0-50); Potassium 4.8 mmol/L (3.4-5.1); Sodium 136 mmol/L (137-145); Total Protein 7.7 g/dL (6.3-8.2)
[2020-06-03 13:50] LABS: Thyroid Stimulating Hormone 4.17 uIU/mL (0.47-4.68)
== END ==
PROVIDERS: PCP Family Medicine; Referring Provider Internal Medicine Cardiovascular Disease; Visit Provider Internal Medicine Cardiovascular Disease
DX: I48.19 Other persistent atrial fibrillation (principal)
CPT/HCPCS: 36415; 80053; 84443

== ENCOUNTER 2020-06-07 12:06 | Emergency (ER) | payer MEDICARE, SELFPAY ==
[2019-05-11 19:22] VITALS: BMI 31.6
[2020-06-07] VITALS (13 sets, daily range): BP systolic 104–137; BP diastolic 64–89; PULSE 60–71; RESP 15–28; TEMP 37.1; O2SAT 95–97; BMI 31.5
--- NOTE | 2020-06-07 13:36 | ED.CHESTPAIN ---
HPI - Chest Pain General Chief Complaint: Chest Pain Stated Complaint: SOB DIZZINESS HEADACHE Time Seen by Provider: 06/07/20 13:26 Source: patient Mode of arrival: Ambulatory Limitations: no limitations History of Present Illness HPI narrative: This is a 70-year-old male comes to the emergency department for some dizziness, headache and shortness of breath. Patient had a TAVR on 05/30/2028 [facility]. He states that he did have bleeding at the right groin which has been slowly healing. He had been on his Eliquis until the night before his procedure. He states he was discharged home feeling well and on the day or Saturday had difficulty with sleeping. Saturday he developed dizziness which he describes as the room spinning, he states that he does not feel lightheaded or like he is going to pass out. He does feel a little bit off balance with these episodes. If he moves too quickly or rolls over it exacerbates the issue. It has been intermittent and will fatigue over time typically. He states he has had a headache for many months but has been present over the last several days as well. He tried some Tylenol and mitzi yesterday as well as today and it helped both times. He denies any chest pain or pressure. Has had some shortness of breath which she states it is the same as it has been over several months prior to and post TAVR. Denies nausea, no vomiting, no issues with bowel movements or urination. No new swelling or skin changes in his extremities other than the ecchymosis he already had present. No numbness, tingling or weakness in his extremities, he has not had any facial droop or difficulty with speech. He does have a history of atrial fibrillation, has had prior cardioversions, he has had a TAVR this month as well as hernia repairs in the past. He does have an iodine allergy which he describes as vomiting and does not have any symptoms when pretreated for contrast CTs. No tobacco, alcohol or illicit. He is on Eliquis twice daily, metoprolol, Lasix, amiodarone and a statin. He is accompanied by his today. Related Data Home Medications Medication Instructions Recorded Confirmed multivitamin [Multiple Vitamins] 1 tab PO DAILY #0 12/27/16 06/03/20 omega 9-kag-jbs-fish oil [Fish Oil] 1,000 mg PO DAILY #0 12/27/16 06/03/20 cholecalciferol (vitamin D3) 2,000 unit PO DAILY 05/10/19 06/03/20 cyanocobalamin (vitamin B-12) 2,000 mcg PO DAILY 05/11/19 06/03/20 [Vitamin B-12] furosemide 40 mg PO DAILY 05/11/19 06/03/20 Previous Rx's Medication Instructions Recorded apixaban 5 mg tablet 5 mg PO BID #60 tab 05/14/19 triamcinolone acetonide 0.1 % 1 applictn TOP BID #30 gram 02/18/20 topical cream nystatin 100,000 unit/gram topical 1 applictn TOP TID 7 Days #60 gram 03/23/20 powder amiodarone 200 mg tablet 200 mg PO DAILY #90 tab 05/19/20 metoprolol succinate 50 mg 100 mg PO BID #90 tab 05/19/20 tablet,extended release 24 hr mupirocin 2 % topical ointment 1 applic TOP TID 7 Days #30 gram 05/19/20 atorvastatin 20 mg tablet 20 mg PO DAILY #90 tab 06/01/20 meclizine 25 mg PO TID PRN #10 tab 06/07/20 Allergies Allergy/AdvReac Type Severity Reaction Status Date / Time Iodinated Contrast Media AdvReac Intermediate Vomiting Verified 06/07/20 12:18 Review of Systems Review of Systems ROS Unobtainable: All systems reviewed & are unremarkable except as noted in HPI and below Patient History Medical History Anticoagulated by anticoagulation treatment Atrial fibrillation (01/07/17) Cardiomyopathy, nonischemic Cellulitis Chronic congestive heart failure (01/07/17) Essential hypertension Left lower lobe pulmonary nodule Mediastinal lymphadenopathy (01/07/17) Pulmonary hypertension Skin rash Social History household members: spouse Smoking Status: Former smoker Smoking Status: Former smoker alcohol intake frequency: holidays/special occasions only Substance Use Type: does not use Exam Narrative Exam Narrative: GEN: well nourished, well appearing male, alert and oriented x 3, patient appears to be in mild distress. HEENT: Atraumatic, pupils are equal round reactive to light, extraocular movements are intact, no nystagmus, nares are clear, TMs are clear with no fluid. No facial droop, HEART: Regular rate and rhythm without murmur, clicks, rubs. No carotid bruits, pulses are equal in upper and lower extremities LUNGS:Lungs clear to auscultation, no wheezes, rales, crackles, chest moves symmetrically ABD:bowel sounds normal, soft, non-tender, no guarding, rebound, rigidity, no masses noted, no hepatosplenomegaly :No CVA tenderness MSCL: Mild tenderness right groin, patient has ecchymosis from the right lower abdomen/inguinal area down into his right upper thigh. There is not a large hematoma easily palpated but does have extensive bruising. No muscle atrophy, muscles strength 5/5 upper and lower extremities, full range of motion, normal gait NEURO:CN 2-12 intact, sensation normal, reflexes 2/4 upper and lower extremities. finger nose finger test normal, heel chavarria test normal Initial Vital Signs Initial Vital Signs: Vital Signs Temperature 98.7 F 06/07/20 12:18 Pulse Rate 71 06/07/20 12:18 Respiratory Rate 15 06/07/20 12:18 Blood Pressure 130/88 06/07/20 12:18 Pulse Oximetry 97 06/07/20 12:18 Scores NIH Stroke Scale Level of Conciousness: Alert, keenly responsive Ask month/age: Answers both questions correctly. Open/close eyes, close hand: Performs both tasks correctly Best gaze horizontal: Normal Visual nunez: No visual loss Facial palsy: Normal symetrical movement Left arm drift: No drift for full 10 sec Right arm drift: No drift for full 10 sec Left leg drift: No drift for full 5 sec Right leg drift: No drift for full 5 sec Limb ataxia: Absent Sensory on face/arms/legs: Normal, no sensory loss Best language: No aphasia, normal Dysarthria: Normal Extinction or inattention: No abnormality Total NIH Stroke scale score: 0 Course Orders Ordered: ED Orders 06/07/20 12:30 EKG-12 Lead Routine 06/07/20 13:36 XR chest 1V Stat 06/07/20 14:15 Complete Blood Count AUTO DIFF Stat Comprehensive Metabolic Panel Stat Lipase Stat NT-proBNP (BNP-Adult 18+) Stat Partial Thromboplastin Time Stat Prothrombin Time INR Stat Troponin & CK Cardiac Panel Stat 06/07/20 14:27 COVID19 Stat 06/07/20 14:41 CT head/brain wo con Stat Discontinued Medications Aspirin (Aspirin 81 Mg Chew Tab) 324 mg PO NOW ONE Stop: 06/07/20 13:37 Last Admin: 06/07/20 14:23 Dose: 324 mg Documented by: CVANCE Sodium Chloride (Normal Saline 0.9%) 1,000 mls @ 150 mls/hr IV CONT HEBER Last Infusion: 06/07/20 17:28 Dose: 0 mls/hr Documented by: Admin: 06/07/20 14:21 Dose: 150 mls/hr Documented by: CVANCE Vital Signs Vital signs: Vital Signs - 8 hr 06/07/20 12:18 06/07/20 12:45 06/07/20 13:00 Temperature 98.7 F Pulse Rate 71 70 65 Respiratory Rate 15 24 24 Blood Pressure 130/88 130/85 113/79 Pulse Oximetry 97 96 95 06/07/20 13:30 06/07/20 14:00 06/07/20 14:23 Temperature Pulse Rate 65 71 65 Respiratory Rate 20 28 H 25 H Blood Pressure 104/69 118/78 Pulse Oximetry 95 06/07/20 14:30 06/07/20 14:46 06/07/20 15:00 Temperature Pulse Rate 64 64 60 Respiratory Rate 24 23 19 Blood Pressure 124/88 126/84 137/79 Pulse Oximetry 96 97 06/07/20 15:30 06/07/20 16:00 06/07/20 16:30 Temperature Pulse Rate 65 65 Respiratory Rate 24 19 Blood Pressure 128/87 121/64 122/85 Pulse Oximetry 96 96 06/07/20 17:00 Temperature Pulse Rate 69 Respiratory Rate 21 Blood Pressure 135/89 Pulse Oximetry 96 MDM - Chest Pain Lab Data Attestation: I reviewed the patient's lab results. Result diagrams: 06/07/20 14:15 06/07/20 14:15 Labs: Lab Results 06/07/20 06/07/20 06/07/20 Range/Units 14:15 14:15 14:15 WBC 7.0 (4.5-11.0) X10^3/uL RBC 5.02 (4.5-5.9) X10^6/uL Hgb 15.8 (13.5-17.5) g/dL Hct 47.6 (41-53) % MCV 94.9 (80-100) fL MCH 31.5 (26-34) PG MCHC 33.2 (30-36) % RDW 13.7 (11.6-14.8) % Plt Count 117 L (150-400) X10^3/uL Neut % (Auto) 63.1 (50-75) % Lymph % (Auto) 23.7 L (25-40) % Thurston % (Auto) 9.7 (3-14) % Eos % (Auto) 2.5 (2-4) % Baso % (Auto) 1.0 (0-2) % Neut # (Auto) 4400 (2472-6725) /uL Lymph # (Auto) 1700 (7971-6710) /uL Thurston # (Auto) 700 (0-900) /uL Eos # (Auto) 200 (0-450) /uL Baso # (Auto) 100 (0-100) /uL PT 12.1 (10.1-12.7) SECONDS INR 1.1 (0.9-1.3) APTT 33 (26.4-36.2) SECONDS Sodium 135 L (137-145) mmol/L Potassium 4.3 (3.4-5.1) mmol/L Chloride 103 (98-107) mmol/L Carbon Dioxide 28 (22-32) mmol/L BUN 26 H (9-20) mg/dL Creatinine 1.07 (0.66-1.25) mg/dL Estimated GFR > 60.0 (>60) mL/min BUN/Creatinine Ratio 24.3 H (6-22) Glucose 136 H (80-110) mg/dL Calcium 9.0 (8.4-10.2) mg/dL Total Bilirubin 0.8 (0.2-1.3) mg/dL AST 29 (17-59) IU/L ALT 31 (<50) IU/L Alkaline Phosphatase 123 (38-126) U/L Total Creatine Kinase 74 (55-170) U/L CK-MB (CK-2) TNP CK-MB (CK-2) Rel Index TNP Troponin I 0.019 (0.01-0.034) ng/mL NT-Pro-B Natriuret Pep 228 H (<125) pg/mL Total Protein 7.7 (6.3-8.2) g/dL Albumin 4.2 (3.5-5.0) g/dL Globulin 3.5 (1.7-4.1) g/dL Albumin/Globulin Ratio 1.2 (1.0-2.8) Lipase 308 H (23-300) U/L COVID-19 PCR (Negative) 06/07/20 Range/Units 14:27 WBC (4.5-11.0) X10^3/uL RBC (4.5-5.9) X10^6/uL Hgb (13.5-17.5) g/dL Hct (41-53) % MCV (80-100) fL MCH (26-34) PG MCHC (30-36) % RDW (11.6-14.8) % Plt Count (150-400) X10^3/uL Neut % (Auto) (50-75) % Lymph % (Auto) (25-40) % Thurston % (Auto) (3-14) % Eos % (Auto) (2-4) % Baso % (Auto) (0-2) % Neut # (Auto) (0749-7638) /uL Lymph # (Auto) (4500-0464) /uL Thurston # (Auto) (0-900) /uL Eos # (Auto) (0-450) /uL Baso # (Auto) (0-100) /uL PT (10.1-12.7) SECONDS INR (0.9-1.3) APTT (26.4-36.2) SECONDS Sodium (137-145) mmol/L Potassium (3.4-5.1) mmol/L Chloride (98-107) mmol/L Carbon Dioxide (22-32) mmol/L BUN (9-20) mg/dL Creatinine (0.66-1.25) mg/dL Estimated GFR (>60) mL/min BUN/Creatinine Ratio (6-22) Glucose (80-110) mg/dL Calcium (8.4-10.2) mg/dL Total Bilirubin (0.2-1.3) mg/dL AST (17-59) IU/L ALT (<50) IU/L Alkaline Phosphatase (38-126) U/L Total Creatine Kinase (55-170) U/L CK-MB (CK-2) CK-MB (CK-2) Rel Index Troponin I (0.01-0.034) ng/mL NT-Pro-B Natriuret Pep (<125) pg/mL Total Protein (6.3-8.2) g/dL Albumin (3.5-5.0) g/dL Globulin (1.7-4.1) g/dL Albumin/Globulin Ratio (1.0-2.8) Lipase (23-300) U/L COVID-19 PCR Negative (Negative) Imaging Data Chest x-ray: Radiologist's Impression: [address] [id number] ReportSigned Patient: Tan Briggs BMR#: [id number]: [id number]:[id number]/Sex: 70 / MDate of Service: 06/07/20Loc: EDAccession Number: [id number] Procedure: XR chest 1V Ordering Provider: Kay Mcelroy D.O. PROCEDURE: XR CHEST 1V INDICATIONS: dizzy, sob, headache, had tavr 05/30/20 TECHNIQUE: One view of the chest was acquired. COMPARISON: [facility], CHEST 1 VIEW, 12/27/2016, 13:10. [facility], CHEST 2 VIEW, 12/12/2016, 15:11. FINDINGS: Surgical changes and devices: None. Lungs and pleura: Lungs are clear considering reduced inspiratory volume. No pleural effusions or pneumothorax. Mediastinum: Mediastinal contours appear normal. Heart size is normal. Bones and chest wall: No suspicious bony lesions. Overlying soft tissues appear unremarkable. IMPRESSION: Reduced inspiration, heart size is at the upper limits of normal but no definite acute CHF is found when inspiratory volume and body habitus is taken into account. Dictated by: Matt Munoz M.D. on 06/07/2020 at 14:18 Approved by: Matt Munoz M.D. on 06/07/2020 at 14:19 CT scan - head: Radiologist's Impression: [address] [id number] Scan ReportSigned Patient: Tan Briggs BMR#: [id number]: [id number]:[id number]/Sex: 70 / MDate of Service: 06/07/20Loc: EDAccession Number: [id number] Procedure: CT head/brain wo con Ordering Provider: Kay Mcelroy D.O. PROCEDURE: CT HEAD/BRAIN WO CON INDICATIONS: vertigo symptoms, s/p TAVR 05/30 TECHNIQUE: Noncontrast 4.5 mm thick angled axial sections acquired from the foramen magnum to the vertex, with coronal and sagittal reformats. For radiation dose reduction, the following was used: automated exposure control, adjustment of mA and/or kV according to patient size. COMPARISON: [facility], CT, HEAD WITHOUT CONTRAST, 12/30/2016, 12:29. FINDINGS: Image quality: Excellent. CSF spaces: Basal cisterns are patent. No extra-axial fluid collections. Ventricles are normal in size and shape. Brain: No midline shift. No intracranial masses or hemorrhage. Crow-white matter interface is normal. Skull and face: Calvarium and visualized facial bones are intact, without suspicious lesions. Sinuses: Visualized sinuses demonstrate a minimal mucous retention cyst versus polyp in the right maxillary sinus. IMPRESSION: 1. No acute intracranial process. Dictated by: Nadja Martínez M.D. on 06/07/2020 at 15:00 Approved by: Nadja Martínez M.D. on 06/07/2020 at 15:01 ECG Data Attestation: I personally reviewed and interpreted this ECG as follows: Prior ECG tracings: not available for review Interpretation: Atrial fibrillation with a rate of 69, QRS of 94 and QTC of 441. No ST elevation is appreciated. Nonspecific change. MDM Narrative Medical decision making narrative: Patient comes in with dizziness which after further description sounds like vertigo. This started several days after his TAVR. He does have some increased risk for stroke with his recent intervention. Head CT was negative, labs do not show any other major abnormalities, we discussed trying to obtain MRI he did not have his device card and we could not verify that it was safe. After much discussion patient would like to return home. His NIH is otherwise 0 he has continued to felt improved without time and does not have any other neurologic changes suggesting stroke at this time. He is already anticoagulated. And on appropriate medications he is to contact his team tomorrow morning and we did discuss that he can return if he is able to obtain his card for possible imaging either as outpatient or through the emergency department. Discharge Plan Departure Patient Disposition: Home Clinical Impression: Vertigo Instructions: DI for Vertigo Activity Restrictions/Additional Instructions: Call to follow up with your surgical team at [facility]. Continue home medications as prescribed You may take meclizine 1-2 tablets every 8 hours as needed for symptoms if you find it helpful. As discussed we were unable to obtain an MRI today, if you can find your device card we can figure ou if you can have an MRI for further evaluation. Return to the ER for headaches, new vision changes, worsening symptoms, new numbness, tingling or weakness, facial droop, difficulty with speech or other new or concerning symptoms. Prescriptions: New meclizine 25 mg tablet 25 mg PO TID PRN (Reason: dizziness) Qty: 10 RF: 0 No Action nystatin 100,000 unit/gram powder 1 applictn TOP TID 7 Days Qty: 60 RF: 1 multivitamin [Multiple Vitamins] 1 EACH tablet 1 tab PO DAILY Qty: 0 RF: 0 omega 2-ytd-emn-fish oil [Fish Oil] 1,000 MG capsule 1,000 mg PO DAILY Qty: 0 RF: 0 Eliquis 5 mg tablet 5 mg PO BID Qty: 60 RF: 5 atorvastatin 20 mg tablet 20 mg PO DAILY Qty: 90 RF: 0 triamcinolone acetonide 0.1 % cream 1 applictn TOP BID Qty: 30 RF: 5 metoprolol succinate 50 mg tablet extended release 24 hr 100 mg PO BID Qty: 90 RF: 1 mupirocin 2 % ointment 1 applic TOP TID 7 Days Qty: 30 RF: 1 amiodarone 200 mg tablet 200 mg PO DAILY Qty: 90 RF: 3 cholecalciferol (vitamin D3) 2,000 unit Capsule 2,000 unit PO DAILY RF: 0 furosemide 40 mg tablet 40 mg PO DAILY RF: 0 cyanocobalamin (vitamin B-12) [Vitamin B-12] 2,000 mcg Tablet Extended Release 2,000 mcg PO DAILY RF: 0 Referrals: Maximiliano Camarena MD [Primary Care Provider] -
[2020-06-07] MEDS: SODIUM CHLORIDE 0.9% 1,000 ML 150 ML IV (14:21)
[2020-06-07] MEDS: ASPIRIN 81 MG CHEW TAB 324 MG PO (14:23)
[2020-06-07 14:25] LABS: Add Manual Diff / Slide Review NO; Basophils Absolute Auto 100 /uL (0-100); Eosinophils Absolute Auto 200 /uL (0-450); Eosinophils Percent Auto 2.5 % (2-4); Hematocrit 47.6 % (41-53); Hemoglobin 15.8 g/dL (13.5-17.5); Lymphocytes Absolute Auto 1700 /uL (1100-4500); Lymphocytes Percent Auto 23.7 % (25-40); Mean Corpuscular HGB Conc 33.2 % (30-36); Mean Corpuscular Hemoglobin 31.5 PG (26-34); Mean Corpuscular Volume 94.9 fL (80-100); Monocytes Absolute Auto 700 /uL (0-900); Monocytes Percent Auto 9.7 % (3-14); Neutrophils Absolute Auto 4400 /uL (1500-7000); Neutrophils Percent Auto 63.1 % (50-75); Platelet Count 117 X10^3/uL (150-400); Red Blood Cell Count 5.02 X10^6/uL (4.5-5.9); Red Cell Distribution Width 13.7 % (11.6-14.8)
[2020-06-07 14:35] LABS: INR 1.1 (0.9-1.3); Prothrombin Time 12.1 SECONDS (10.1-12.7)
[2020-06-07 14:38] LABS: PTT Partial Thromboplastin Tim 33 SECONDS (26.4-36.2)
[2020-06-07 14:41] LABS: Alanine Aminotransferase 31 IU/L (<50); Albumin 4.2 g/dL (3.5-5.0); Albumin Globulin Ratio 1.2 (1.0-2.8); Alkaline Phosphatase 123 U/L (38-126); Aspartate Aminotransferase 29 IU/L (17-59); BUN Creatinine Ratio 24.3 (6-22); Bilirubin Total 0.8 mg/dL (0.2-1.3); Blood Urea Nitrogen 26 mg/dL (9-20); Carbon Dioxide 28 mmol/L (22-32); Chloride 103 mmol/L (98-107); Creatine Kinase 74 U/L (55-170); Estimated Glomerular Filt Rate > 60.0 mL/min (>60); Globulin 3.5 g/dL (1.7-4.1); Glucose 136 mg/dL (80-110); HEMOLYSIS < 15 (0-50); Lipase 308 U/L (23-300); Potassium 4.3 mmol/L (3.4-5.1); Sodium 135 mmol/L (137-145); Total Protein 7.7 g/dL (6.3-8.2)
--- NOTE | 2020-06-07 14:41 | DI.CT.S_ITS ---
PROCEDURE: CT HEAD/BRAIN WO CON INDICATIONS: vertigo symptoms, s/p TAVR 05/30 TECHNIQUE: Noncontrast 4.5 mm thick angled axial sections acquired from the foramen magnum to the vertex, with coronal and sagittal reformats. For radiation dose reduction, the following was used: automated exposure control, adjustment of mA and/or kV according to patient size. COMPARISON: [facility], CT, HEAD WITHOUT CONTRAST, 12/30/2016, 12:29. FINDINGS: Image quality: Excellent. CSF spaces: Basal cisterns are patent. No extra-axial fluid collections. Ventricles are normal in size and shape. Brain: No midline shift. No intracranial masses or hemorrhage. Crow-white matter interface is normal. Skull and face: Calvarium and visualized facial bones are intact, without suspicious lesions. Sinuses: Visualized sinuses demonstrate a minimal mucous retention cyst versus polyp in the right maxillary sinus. IMPRESSION: 1. No acute intracranial process. Dictated by: Nadja Martínez M.D. on 06/07/2020 at 15:00 Approved by: Nadja Martínez M.D. on 06/07/2020 at 15:01
[2020-06-07 14:52] LABS: NT-proBNP (BNP-Adult 18+) 228 pg/mL (<125); Troponin I 0.019 ng/mL (0.01-0.034)
[2020-06-07 15:00] LABS: COVID19 -Nasal RAPID Negative (Negative)
--- NOTE | 2020-06-07 15:01 | PC.NURSE ---
carol complains of some dizzy spells at home off and on since . Had surgery ( valve replacement one week ago. Was off his blood thinners for awhile but now is back on them. Head CT done. Patient said he had another spell when he was in the CT scanner
--- OUTSIDE RECORDS SUMMARY | 2020-08-30 16:33 | XMS_ITS | Referral Summary ---
:1950 Author Organization [facility] Address [address] [place] [address] Care Team Providers Name Role Phone Camarena Primary Care Provider Reason for Referral Diagnostic Imaging (Routine) Status Reason Specialty Diagnoses / Procedures Referred By Adriana byrnes Referred To Contact Closed Diagnoses [facility] of [facility] Procedures Complete PFT with DLCO [address] [place] [address] [address] [id number] [place], [place] Phone: [phone] Phone: Consultation (Routine) Status Reason Specialty Diagnoses / Referred By Referred To Procedures Contact Contact Closed Specialty Diagnoses Persistent atrial fibrillation (CMS/HCC) [facility] Services Clari Harrington MD [address] [place] [address] [phone] [place], [place] Phone: [phone] (Routine) Status Reason Specialty Diagnoses / Procedures Referred By Will shirley To Contact Contact Incomplete Diagnoses Persistent atrial fibrillation (CMS/HCC) [facility] Procedures ZIO Patch - 7 Day Placed During Visit [address] [place] [address] [address] [place] [address] Reason for Visit Reason Comments Atrial Fibrillation Valve Disorder Encounter Details Date Type Department Care Team Description 05/12/2020 Office Visit [facility] Lexie Wilkinson Persistent atrial fibrillation (CMS/HCC) (Primary Dx); [facility] Cardiology MD Juany History of cardioversion; [address] Nonrheumatic aortic valve st enosis; [address] [facility], [address] Dyslipidemia; D [place], [place] On amiodarone therapy; [place] [address] Snoring; [id number] Shortness of breath [phone] Allergies Active Allergy Reactions Severity Noted Date Comments Iodinated Contrast Media 03/07/2020 Vom iting No Known Allergies 04/01/2017 documented as of this encounter (statuses as of 05/17/2020) Medications Medication Sig Dispensed Refills Start End Date Status Date multivitamin Take 1 tablet by 0 Active (THERAGRAN) mouth daily. tablet tablet omega Take 1 capsule 0 Activ e [id number] by mouth daily. oil (OMEGA-3) 350 mg-235 mg- 90 mg-597 mg capsule,delayed release(DR/EC) cholecalciferol, Take 1 tablet by 0 Active vitamin D3, 1,000 mouth daily. unit tablet MAGNESIUM ORAL Take 400 mg by 0 Active mouth daily nystatin Apply 1 0 Active (MYCOSTATIN) application powder topically 3 (three) times a day mupirocin Apply 1 0 Active (BACTROBAN) 2 % application ointment topically 3 (three) times a day furosemide Take 1.5 tablets 135 tablet 3 05/12/20 D iscontinued (LASIX) 40 mg (60 mg total) by 0 20 (Reorder) tablet mouth daily amiodarone Take 2 tablets 180 tablet 3 05/12/20 Dis continued (PACERONE) 200 mg (400 mg total) 0 20 tablet by mouth 2 (two) times a day Take 400 mg BID for one week, then 200 mg BID for one week then maintenance dose 200 mg daily thereafter apixaban Take 1 tablet (5 180 tablet 3 05/12/20 Di scontinued (Eliquis) 5 mg mg total) by 0 20 (R eorder) tablet mouth 2 (two) times a day atorvastatin Take 1 tablet 90 tablet 3 05/12/20 Dis continued (LIPITOR) 20 mg (20 mg total) by 0 20 (Reorder) tablet mouth daily lisinopriL Take 1 tablet (5 180 tablet 3 05/12/20 D iscontinued (PRINIVIL) 5 mg mg total) by 0 20 tablet mouth 2 (two) times a day metoprolol Take 3 tablets 180 tablet 3 05/12/20 Dis continued succinate XL (150 mg total) 0 20 (TOPROL-XL) 50 mg by mouth 2 (two) 24 hr tablet times a day metoprolol Take 2 tablets 360 tablet 3 05/12/20 Dis continued succinate XL (100 mg total) 0 20 (R eorder) (TOPROL-XL) 50 mg by mouth 2 (two) 24 hr tablet times a day lisinopriL Take 1 tablet (5 90 tablet 3 05/12/20 Di scontinued (PRINIVIL) 5 mg mg total) by 0 20 ( Reorder) tablet mouth daily amiodarone Take 1 tablet 90 tablet 3 05/12/20 Disco ntinued (PACERONE) 200 mg (200 mg total) 0 20 (Reorder) tablet by mouth daily documented as of this encounter (statuses as of 05/17/2020) Active Problems Problem Noted Date Nonrheumatic aortic valve stenosis 05/12/2020 Dyslipidemia 05/12/2020 On amiodarone therapy 05/12/2020 Blood in stool, brennon 07/09/2017 Nonischemic cardiomyopathy 07/09/2017 History of cardioversion 07/09/2017 Arrhythmia 04/25/2017 A-fib 04/25/2017 documented as of this encounter (statuses as of 05/17/2020) Social History Tobacco Use Types Packs/Day Years Used Date Former Smoker 0.25 Quit: 2009 Smokeless Tobacco: Never Used Alcohol Use Drinks/Week oz/Week Comments Yes Alcohol Habits Answer Date Recorded How often do you have a drink containing alcohol? 2-3 times a week 03/21/2020 How many drinks containing alcohol do you have on a 3 or 4 03/21/2020 typical day when you are drinking? How often do you have six or more drinks on one Never 03/21/2020 occasion? Sex Assigned at Date Recorded Not on file documented as of this encounter Last Filed Vital Signs Vital Sign Reading Time Taken Comments Blood Pressure 110/60 05/12/2020 2:40 PM PDT Pulse 112 05/12/2020 2:40 PM PDT Temperature - - Respiratory Rate - - Oxygen Saturation - - Inhaled Oxygen Concentration - - Weight 104 kg (229 lb) 05/12/2020 2:40 PM PDT Height 179.1 cm (5' 10.51) 05/12/2020 2:40 PM PDT Body Mass Index 32.38 05/12/2020 2:40 PM PDT documented in this encounter Patient Instructions Patient InstructionsLexie Wilkinson MD - 05/12/2020 2:30 PM PDT afib Patient Education A-fib (Atrial Fibrillation) WHAT YOU NEED TO KNOW: A-fib may come and go, or it may be a long-term condition. A-fib can cause blood clots, stroke, or heart failure. These conditions may become life-threatening. It is important to treat and manage a-fibto help prevent a blood clot, stroke, or heart failure. DISCHARGE INSTRUCTIONS: Call 911 for any of the following: ?? You have any of the following signs of a heart attack: ? Squeezing, pressure, or pain in your chest ? You may also have any of the following: ? Discomfort or pain in your back, neck, jaw, stomach, or arm ? Shortness of breath ? Nausea or vomiting ? Lightheadedness or a sudden cold sweat ?? You have any of the following signs of a stroke: ? Numbness or drooping on one side of your face ? Weakness in an arm or leg ? Confusion or difficulty speaking ? Dizziness, a severe headache, or vision loss Return to the emergency department if: You have any of the following signs of a blood clot: ?? You feel lightheaded, are short of breath, and have chest pain. ?? You cough up blood. ?? You have swelling, redness, pain, or warmth in your arm or leg. Contact your staff certified nurse midwife or healthcare provider if: ?? Your heart rate is more than 110 beats per minute. ?? You have new or worsening swelling in your legs, feet, ankles, or abdomen. ?? You are short of breath, even at rest. ?? You have questions or concerns about your condition or care. Medicines: You may need any of the following: ?? Heart medicines help control your heart rate or rhythm. You may need more than one medicine to treat your symptoms. ?? Blood thinners help prevent blood clots. Clots can cause strokes, heart attacks, and . The following are general safety guidelines to follow while you are taking a blood thinner: ? Watch for bleeding and bruising while you take blood thinners. Watch for bleeding from your gums or nose. Watch for blood in your urine and bowel movements. Use a soft washcloth on your skin, and a soft toothbrush to brush your teeth. This can keep your skin and gums from bleeding. If you shave, usean electric shaver. Do not play contact sports. ? Tell your dentist and other healthcare providers that you take a blood thinner. Wear a bracelet ornecklace that says you take this medicine. ? Do not start or stop any other medicines unless your healthcare provider tells you to. Many medicines cannot be used with blood thinners. ? Take your blood thinner exactly as prescribed by your healthcare provider. Do not skip does or take less than prescribed. Tell your provider right away if you forget to take your blood thinner, or ifyou take too much. ? Warfarin is a blood thinner that you may need to take. The following are things you should be aware of if you take warfarin: ?? Foods and medicines can affect the amount of warfarin in your blood. Do not make major changes toyour diet while you take warfarin. Warfarin works best when you eat about the same amount of vitaminK every day. Vitamin K is found in green leafy vegetables and certain other foods. Ask for more information about what to eat when you are taking warfarin. ?? You will need to see your healthcare provider for follow-up visits when you are on warfarin. You will need regular blood tests. These tests are used to decide how much medicine you need. ?? Antiplatelets , such as aspirin, help prevent blood clots. Take your antiplatelet medicine exactly as directed. These medicines make it more likely for you to bleed or bruise. If you are told to take aspirin, do not take acetaminophen or ibuprofen instead. ?? Take your medicine as directed. Contact your healthcare provider if you think your medicine is not helping or if you have side effects. Tell him or her if you are allergic to any medicine. Keep a list of the medicines, vitamins, and herbs you take. Include the amounts, and when and why you take them. Bring the list or the pill bottles to follow-up visits. Carry your medicine list with you in caseof an emergency. Follow up with your staff certified nurse midwife as directed: You will need regular blood tests and monitoring. Write down your questions so you remember to ask them during your visits. Manage A-fib: ?? Know your target heart rate. Learn how to take your pulse and monitor your heart rate. ?? Manage other health conditions. This includes high blood pressure, sleep apnea, thyroid disease,diabetes, and other heart conditions. Take medicine as directed and follow your treatment plan. ?? Limit or do not drink alcohol. Alcohol can make a-fib hard to manage. Ask your healthcare provider if it is safe for you to drink alcohol. A drink of alcohol is 12 ounces of beer, 5 ounces of wine,or 1?? ounces of liquor. ?? Do not smoke. Nicotine and other chemicals in cigarettes and cigars can cause heart and lung damage. Ask your healthcare provider for information if you currently smoke and need help to quit. E-cigarettes or smokeless tobacco still contain nicotine. Talk to your healthcare provider before you use these products. ?? Eat heart-healthy foods. Heart healthy foods will help keep your cholesterol low. These include fruits, vegetables, whole-grain breads, low-fat dairy products, beans, lean meats, and fish. Replace butter and margarine with heart- healthy oils such as olive oil and canola oil. ?? Maintain a healthy weight. Ask your healthcare provider how much you should weigh. Ask him or her to help you create a weight loss plan if you are overweight. ?? Exercise for 30 minutes most days of the week. Ask your healthcare provider about the best exercise plan for you. ?? Copyright [employer] 2019 Information is for End User's use only and may not be sold, redistributed or otherwise used for commercial purposes. All illustrations and images included in CareNotes?? are the copyrighted property of [employer]. or [employer] The above information is an educational technology coordinator only. It is not intended as medical advice for individual conditions or treatments. Talk to your doctor, nurse or pharmacist before following any medical regimen to see if it is safe and effective for you. documented in this encounter Progress Notes Lexie Wilkinson MD - 05/12/2020 2:30 PM PDT Subjective Patient ID: Tan Briggs is a 70 y.o. male that had concerns including Atrial Fibrillation. HPI: This 70 years old pleasant male who is a history of essential hypertension, obesity, possible sleep apnea, history of CHF, atrial fibrillation diagnosed in December 2016, who was started on amiodarone in February 11, 2017 in anticipation of cardioversion, status post DILIP cardioversion in March 2017, who did not follow-up after the cardioversion and was seen again on March 21, 2020 after beingtold by PCP that he needed to return to cardiology as patient was in A. fib. Pt reports moderate compliance with medication, missing 2 days a week on average. Pt stopped takingamiodarone 8 months ago, can't remember why. He is asymptomatic with A Fib and does not know how long he has been back in A Fib. Patient reports he gained about 30 pounds in the last 8 months as his dog and he stopped taking daily walks, however he just got a new dog so he will start walking again. Patient does not drink caffeine, drinks sufficient water every day, he reports drinking 2-3 cocktails or beers 3 times a week, he reports being under considerable stress from work, he states that he only sleeps 4 to 6 hours at night and that he falls asleep easily in the day, such as if he lays do wn to fix something he will fall asleep. Patient reports that he snores loudly and that his son fithim with an old CPAP he had, although that is not his profession. Patient was scheduled for DILIP cardioversion and amiodarone was started again on March 21, 2020. OnApril 27, 2020 patient underwent DILIP cardioversion. It was successful. On DILIP LV ejection fraction 50??5%, grossly normal RV function, no left atrial appendage or intracardiac clot andThe aortic valve is moderately calcified. There is severely reduced leaflet mobility. The calculated aortic valve area is 0.97-1.1 cm2. The aortic valve area is 0.97 centimeters squared by planimetry. The peak aortic velocity is 3.03 m/sec. The aortic valve mean gradient is 22.3 mmHg.LU indexed to BSA (cm^2/m^2): 0.44 There is severe aortic stenosis (paradoxically low gradient. With this background history today came for follow-up. According to the patient from last 1 week likely he has flipped back to A. fib as his blood pressure monitor suggested irregular heart rhythm. He is taking only 150 mg of metoprolol succinate in the morning. Not taking 150 mg in the evening. Co mpliant with Eliquis and amiodarone. From last 1 week he has not drink alcohol. No chest pain or fever or PND or orthopnea or excessive caffeine intake. Has not had sleep apnea evaluation. He has chronic shortness of breath on moderate exertion. EKG today revealed:Atrial fibrillation with ventricular rate about 112 bpm -Left axis -anterior fascicular block. Nonspecific ST-T changes. Labs: 03/22/20 Total cholesterol 193, HDL 41, LDL 114, triglycerides 191 ASCVD score is 17.7% intermediate risk, according to guidelines, pt is on appropriate statin therapy. April 27, 2020: Sodium 140, potassium 5.0, BUN 27, creatinine 1.17, magnesium 2.2 ?? Previous cardiac history includes: ?? On 12/27/2016 he was admitted to [facility] with newly discovered rapid atrial fibrillation with symptoms of CHF. Trops were negative and PE was ruled out by CT chest angio.Per med records it was noted that his recent TSH was normal. He has no previous cardiac history. ?? A CT angiogram on admission showed coronary calcifications and a 1 cm pulmonary nodule with mediastinal and hilar lymphadenopathy. He was diuresed and started on IV diltiazem, metoprolol and lisinopril with improved heart rate control. ?? His echo showed moderately reduced LV systolic function with EF of 40-45% and global hypokinesis without any focal wall motion abnormalities. Left ventricular size was normal. Right ventricular systolic function was moderately reduced with a pulmonary artery pressure estimated at 48 mmHg with CVP estimated at 5 mmHg. There was moderate left atrial enlargement with moderate to severe mitral regurgitation and mild to moderate aortic stenosis. ?? His urine was positive for methamphetamine and marijuana. ?? As per patient he never used methamphetamine but he was using marijuana which he quit using since heis discharged from hospital. ? He had PET Scan done today which showed No scintigraphic evidence for lung cancer. The left lower lobe nodule seen on 12/27/2016 is no longer visualized, No abnormal mediastinal hilar hiro uptake. ?In January 29, 2017 pharmacological perfusion study did not reveal any obvious ischemia infarction. There was normal myocardial perfusion. ?? DILIP: April 01, 2017: No thrombus is detected in the left atrial appendage. No left atrial mass or thrombus visualized. The interatrial septum is intact with no evidence for an atrial septal defect. The left ventricle is grossly normal size. The ejection fraction is estimated to be 25-30%. There is no LV thrombus. There is severe global hypokinesis of the left ventricle. There is mild to moderate mitral regurgitation. Compared to the prior echo study, there has been a decrease in the severity of mitral regurgitation. The aortic valve is mildly calcified. Leaflet mobility is mild to moderately reduced. Aortic valve planimetry is 1.6 cm2. Aortic cusp separation is about 1.2 cm. There is no hemodynamically significant valvular aortic stenosis. Past Medical History: Diagnosis Date ??? Arrhythmia ??? Asthma ??? Atrial fibrillation with rapid ventricular response (CMS/HCC) ??? CHF (congestive heart failure) (CMS/HCC) ??? Hyperlipidemia ??? Hypertension ??? RODRIGO (obstructive sleep apnea) Past Surgical History: Procedure Laterality Date ??? HERNIA REPAIR ??? WRIST SURGERY Family History Problem Relation Age of Onset ??? Heart disease Mother ??? Heart attack Father 53 ??? No Known Problems Sister ??? Dysrhythmia Brother 3 ablations heart flutter Social History Socioeconomic History ??? Marital status: Spouse name: Not on file ??? Number of children: Not on file ??? Years of education: Not on file ??? Highest education level: Not on file Occupational History ??? Not on file Social Needs ??? Financial resource strain: Not on file ??? Food insecurity Worry: Not on file Inability: Not on file ??? Transportation needs Medical: Not on file Non-medical: Not on file Tobacco Use ??? Smoking status: Former Smoker Packs/day: 0.25 Quit date: 2010 Years since quittin.8 ??? Smokeless tobacco: Never Used Substance and Sexual Activity ??? Alcohol use: Yes Frequency: 2-3 times a week Drinks per session: 3 or 4 Binge frequency: Never ??? Drug use: Yes Types: Marijuana ??? Sexual activity: Defer Lifestyle ??? Physical activity Days per week: Not on file Minutes per session: Not on file ??? Stress: Not on file Relationships ??? Social connections Talks on phone: Not on file Gets together: Not on file Attends mormon service: Not on file Active member of club or organization: Not on file Attends meetings of clubs or organizations: Not on file Relationship status: Not on file Other Topics Concern ??? Not on file Social History Narrative ??? Not on file Allergies Allergen Reactions ??? Iodinated Contrast Media Vomiting ??? No Known Allergies Current Medication List Sig amiodarone (PACERONE) 200 mg tablet Take 2 tablets (400 mg total) by mouth 2 (two) times a day [id number] mg BID for one week, then 200 mg BID for one week then maintenance dose 200 mg daily thereafter apixaban (Eliquis) 5 mg tablet Take 1 tablet (5 mg total) by mouth 2 (two) times a day atorvastatin (LIPITOR) 20 mg tablet Take 1 tablet (20 mg total) by mouth daily cholecalciferol, vitamin D3, 1,000 unit tablet Take 1 tablet by mouth daily. furosemide (LASIX) 40 mg tablet Take 1.5 tablets (60 mg total) by mouth daily lisinopriL (PRINIVIL) 5 mg tablet Take 1 tablet (5 mg total) by mouth 2 (two) times a day MAGNESIUM ORAL Take 400 mg by mouth daily metoprolol succinate XL (TOPROL-XL) 50 mg 24 hr tablet Take 3 tablets (150 mg total) by mouth 2 (two) times a day multivitamin (THERAGRAN) tablet tablet Take 1 tablet by mouth daily. mupirocin (BACTROBAN) 2 % ointment Apply 1 application topically 3 (three) times a day nystatin (MYCOSTATIN) powder Apply 1 application topically 3 (three) times a day omega 0-qfy-zbu-fish oil (OMEGA-3) 350 mg-235 mg- 90 mg-597 mg capsule,delayed release(DR/EC) Take 1 capsule by mouth daily. Review of Systems Constitutional: Negative for diaphoresis, fatigue, fever and unexpected weight change. HENT: Negative for tinnitus. Eyes: Negative for visual disturbance. Respiratory: Positive for shortness of breath. Negative for chest tightness. Cardiovascular: Negative for chest pain, palpitations and leg swelling. Gastrointestinal: Negative for anal bleeding. Endocrine: Negative for polydipsia. Genitourinary: Negative for hematuria. Musculoskeletal: Negative for myalgias. Skin: Positive for rash. Neurological: Positive for dizziness and light-headedness. Negative for weakness. Hematological: Does not bruise/bleed easily. Psychiatric/Behavioral: The patient is not nervous/anxious. All other systems reviewed and are negative. Objective BP 110/60 (BP Location: Left arm, Patient Position: Sitting) Pulse (!) 112 Ht 1.791 m Wt 104 kg BMI 32.38 kg/m?? Physical Exam: General Appearance: Obese, pleasant, cooperative, no apparent distress HENT: No obvious jaundice, no xanthelasma, very reddened nose Neck: Positive JVD Respiratory: clear to auscultation and percussion, no rales or wheeze Cardiovascular: Irregularly irregular rhythm, S1 variable, P2 appears prominent, no S3, no S4, grade 2 x 6 ejection systolic murmur at the base Pulses: No carotid bruit, no obvious abdominal bruit, no evidence of critical limb ischemia Abdomen: Nontender, no hepatosplenomegaly, no obvious pulsatile mass obese Extremities: No clubbing, cyanosis, mild bilateral pedal edema Neuro: Alert oriented to time place and person, no obvious motor or sensory deficit. Psych: Appropriate affect, normal mentation and memory Skin: No gangrene or ulcer Assessment/Plan Diagnoses and all orders for this visit: Persistent atrial fibrillation (CMS/HCC) - ECG 12 Lead (Clinic - Same Day) History of cardioversion - ECG 12 Lead (Clinic - Same Day) Nonrheumatic aortic valve stenosis Dyslipidemia On amiodarone therapy Assessment/Plan Comments: Patient had DILIP cardioversion on April 27, 2020 which was successful however he is back in A. fib.Heart rate is mildly increased. His LV ejection fraction 50??5% and likely has progression of aortic stenosis which appears to be paradoxically low gradient severe aortic stenosis. [facility]. Sleep apnea is very important regardinghis case. He claims that he will stop drinking alcohol. I put him referral for sleep apnea evaluation again. For better rate control will increase metoprolol succinate to 150 mg daily to 100 mg twice a day that is is 200 mg daily. Amiodarone related side effects discussed. Check PFT, TSH and CMP. Renew Eliquis 5 mg twice a day. Clinically at present he is not in volume overload. Will provide him Holter monitor in 1 to 2 weeks to assess effectiveness of rate control. At present will recommend rate control strategy plus anticoagulation. Follow-up in 3 months. In the interim, if patient brandy uptonops worsening of cardiovascular symptoms, advised to call us. This note was generated utilizing voice recognition software. While attempts have been made to correct mistakes, common errors may occur, including substitution of words that sound phonetically similar to the intended word as well as random substitution errors. Please take this into consideration and use clinical context when necessary. Electronically signed by Lexie Wilkinson MD 05/12/2020 3:02 PM documented in this encounter Plan of Treatment Scheduled Orders Name Type Priority Associated Diagnoses Order S chedule TSH Lab Routine Persistent atrial Expected: fibrillation 05/12/2020, Expires: 2020 Comprehensive Lab Routine Persistent atrial Expected: Metabolic Panel (CMP) fibrillation 2019, Expires 12 Months Expires: 1 ZIO Patch - 7 Day Cardiac Services Routine Persistent atrial E xpected: Placed During Visit fibrillation 05/12/20 20, Expires: 2021 Complete PFT with PFT Routine Shortness of breath 1 O ccurrences DLCO starting 2019 until 1 Scheduled Referrals Name Type Priority Associated Diagnoses Order S chedule *SRC MV Referral Outpatient Referral Routine Persistent atrial Ordered: to Sleep Medicine fibrillation 05/12/2020 Snoring documented as of this encounter Procedures Procedure Name Priority Date/Time Associated Diagnosis Comme nts ECG 12-LEAD Routine 05/12/2020 2:51 PM Persistent atrial Res ults for this PDT fibrillation (CM S/HCC) procedure are in History of the results cardioversion section. documented in this encounter Results ECG 12 Lead (Clinic - Same Day) (05/12/2020 2:51 PM PDT) Specimen Narrative Performed At This result has an attachment that is no t available. Result approved by Lexie Wilkinson MD on 05/12/20 documented in this encounter Visit Diagnoses Diagnosis Persistent atrial fibrillation (CMS/HCC) - Primary Atrial fibrillation History of cardioversion Nonrheumatic aortic valve stenosis Dyslipidemia Other and unspecified hyperlipidemia On amiodarone therapy Snoring Other dyspnea and respiratory abnormalit y Shortness of breath documented in this encounter Insurance Payer Benefit Plan / Subscriber ID Effective Dates Phone Addre ss Type Group [employer] AARP MEDICARE [id number] 2019-Present MEDICARE MANAGED COMPLETE O documented as of this encounter Advance Directives Documents on File Type Date Recorded Patient [employer] Explanati on Advance Directives and Living Will
== END 2020-06-07 17:29 | disposition home or self-care (01) ==
PROVIDERS: Emergency Provider Emergency Medicine; PCP Family Medicine
DX: R42 Dizziness and giddiness (principal); R06.02 Shortness of breath; R51.9 Headache, unspecified
CPT/HCPCS: 36415; 70450; 71045; 80053; 82550; 83690; 83880; 84484; 85025; 85610; 85730; 87635; 93005; 96360; 96361; 99284

== ENCOUNTER → 2020-11-17 10:38 | Outpatient (CLI) | payer MEDICARE, SELFPAY ==
[2019-05-11 19:22] VITALS: BMI 31.6
[2020-11-17 12:09] LABS: Alanine Aminotransferase 27 IU/L (<50); Albumin Globulin Ratio 1.3 (1.0-2.8); Alkaline Phosphatase 93 U/L (38-126); Aspartate Aminotransferase 46 IU/L (17-59); BUN Creatinine Ratio 24.5 (6-22); Blood Urea Nitrogen 27 mg/dL (9-20); Calcium 9.1 mg/dL (8.4-10.2); Carbon Dioxide 26 mmol/L (22-32); Chloride 104 mmol/L (98-107); Estimated Glomerular Filt Rate > 60.0 mL/min (>60); Glucose 120 mg/dL (80-110); HEMOLYSIS 39 (0-50); Potassium 4.9 mmol/L (3.4-5.1); Sodium 137 mmol/L (137-145)
[2020-11-17 12:17] LABS: NT-proBNP (BNP-Adult 18+) 599 pg/mL (<125)
[2020-11-17 12:39] LABS: Thyroid Stimulating Hormone 2.77 uIU/mL (0.47-4.68)
== END ==
PROVIDERS: PCP Nurse Practitioner; Referring Provider Internal Medicine Cardiovascular Disease; Visit Provider Internal Medicine Cardiovascular Disease
DX: R06.02 Shortness of breath (principal); I48.0 Paroxysmal atrial fibrillation; Z79.899 Other long term (current) drug therapy
CPT/HCPCS: 36415; 80053; 83880; 84443

== ENCOUNTER → 2020-12-08 07:25 | Outpatient (CLI) | payer MEDICARE, SELFPAY ==
[2019-05-11 19:22] VITALS: BMI 31.6
[2020-12-08 08:50] LABS: COVID19 -Nasal RAPID Negative (Negative)
== END ==
PROVIDERS: PCP Nurse Practitioner; Referring Provider Internal Medicine Cardiovascular Disease; Visit Provider Internal Medicine Cardiovascular Disease
DX: Z20.822 Contact with and (suspected) exposure to COVID-19 (principal)
CPT/HCPCS: 87635; C9803

== ENCOUNTER → 2020-12-09 07:05 | Outpatient (CLI) | payer MEDICARE, SELFPAY ==
[2019-05-11 19:22] VITALS: BMI 31.6
--- NOTE | 2020-12-14 11:03 | PM.PFT.1 ---
Pulmonary Function Test Referral & Results Date Patient Seen: 12/09/20 Requesting provider: Lexie Wilkinson Results: The spirometry demonstrates an FVC of 3.71 L which is 80% of predicted. The FEV1 was measured at 2.73 L which is 80% of predicted. The FEV1/FVC ratio was 74 which is 99% of predicted. Following the administration of bronchodilator there was no notable change. Lung volumes show an SVC of 4.03 L which is 85% of predicted. The diffusing capacity was measured at 25.05 which is 74% of predicted. No hemoglobin value was provided, so no correction for potential anemia could be made, if appropriate. The maximum voluntary ventilation was reduced slightly Interpretation: This study demonstrates perhaps mild obstructive lung disease based on reduction FEV1 although FEV1/FVC ratio is preserved, shape a flow volume loop does suggest or least support possibility of mild obstructive lung disease There may also be mild restrictive lung disease based on minimal reduction in lung volumes There is also a mild reduction in diffusing capacity suggesting element of disease at the capillary alveolar level Clinical correlation suggested
== END ==
PROVIDERS: PCP Nurse Practitioner; Referring Provider Internal Medicine Cardiovascular Disease; Visit Provider Internal Medicine Cardiovascular Disease
DX: R06.02 Shortness of breath (principal); J98.8 Other specified respiratory disorders; Z87.891 Personal history of nicotine dependence
CPT/HCPCS: 94060; 94726; 94729

== ENCOUNTER → 2020-12-15 12:28 | Outpatient (CLI) | payer MEDICARE, SELFPAY ==
[2019-05-11 19:22] VITALS: BMI 31.6
--- NOTE | 2020-12-15 | DI.ECHO.S_ITS ---
[facility]+ [facility] +---------+ : : [address] : : : : [id number] : : : : Phone: [phone]---------+ Echocardiogram Report + + :Name: LIZABETH PAULINO Study Date: 12/15/2020 Height: 71 in : :[facility] ReadingLocation: Weight: 225 lb : : Gender: Male BSA: 2.2 m2 : :: 1950 Age: 70 yrs BP: 140/99 mmHg: :Reason For Study: PROSTHETIC HEART VALVE : :Ordering Physician: WILLIAN, : :JOSE Performed By: Rosalinda Hernandez : :Referring: JOSE DORSEY : + + Interpretation Summary The patient was in atrial fibrillation with heart rates between 98-115 bpm during the exam. The left ventricle is normal in size. The ejection fraction is estimated to be 55-60%. Compared to the prior exam, the left ventricular function is improved. The right ventricle is grossly normal size. Right ventricular systolic function is mild to moderately reduced. No significant change in RV function. There is mild mitral regurgitation. Compared to the prior echo study, there has been a decrease in the severity of mitral regurgitation. There is a bioprosthetic aortic valve. Bioprosthetic valve is new. The prosthetic aortic valve is well-seated. The peak aortic velocity is 2.18 m/sec. The aortic valve mean gradient is 10 mmHg. There is mild aortic regurgitation (central). There is trace tricuspid regurgitation. The right ventricular systolic pressure is estimated to be at least 50 mmHg based on an estimated right atrial pressure of 3 mm Hg. Compared to the prior echo exam, there has been no change in the severity of pulmonary hypertension. The ascending aorta is mildly enlarged. 4.0 cm in diameter. Previously it was 1.1 cm. Procedure: A two-dimensional transthoracic echocardiogram with color flow and Doppler was performed. The study quality was technically adequate. Comparison is made with the echocardiogram of 12/28/2016. The patient was in atrial fibrillation with heart rates between 98-115 bpm during the exam. Left Ventricle: The left ventricle is normal in size. Proximal septal thickening is noted. Left ventricular wall thickness is mildly increased. There is no thrombus. A false chord is noted (normal variant). The ejection fraction is estimated to be 55-60%. Compared to the prior exam, the left ventricular function is improved. There are no focal wall motion abnormalities. Diastolic function could not be accurately assessed due to atrial fibrillation. E/E' med: 10.2. Right Ventricle: The right ventricle is grossly normal size. Right ventricular systolic function is mild to moderately reduced. There has been no significant change since the previous study. Atria: The left atrium is severely dilated. The left atrium has mildly increased in size since the prior echo exam. The right atrium is mildly dilated. There is no Doppler evidence for an interatrial shunt. Mitral Valve: The mitral valve leaflets appear mildly thickened, but open well. There is mild mitral annular calcification. There is mild mitral regurgitation. Compared to the prior echo study, there has been a decrease in the severity of mitral regurgitation. Aortic Valve: There is a bioprosthetic aortic valve. The prosthetic aortic valve is well-seated. The peak aortic velocity is 2.18 m/sec. The aortic valve mean gradient is 10 mmHg. There is mild aortic regurgitation. Tricuspid Valve: The tricuspid valve is normal. There is trace tricuspid regurgitation. The right ventricular systolic pressure is estimated to be at least 50 mmHg based on an estimated right atrial pressure of 3 mm Hg. Compared to the prior echo exam, there has been no change in the severity of pulmonary hypertension. Pulmonic Valve: The pulmonic valve is not well seen, but is grossly normal. There is no pulmonic valvular regurgitation. Great Vessels: The aortic root is normal size. The ascending aorta is mildly enlarged. The IVC is of normal diameter and collapses greater than 50% with a sniff. This suggests a low right atrial pressure of 3 mm Hg. Pericardium/ Pleura There is no pericardial effusion. There is no pleural effusion. MMode/2D Measurements & Calculations LVIDd: 4.5 cm LVOT diam: 2.0 cm LVIDs: 3.3 cm asc Aorta Diam: 4.0 cm FS: 25.9 % Ao Arch Diam (Prox Trans): 3.4 cm EPSS: 0.31 cm IVSd: 1.5 cm LVPWd: 1.1 cm LV pemberton. diameter/BSA (cm/m^2): 2.0 LV sys. diameter/BSA (cm/m^2): 1.5 LA A2 area: 31.5 cm2 RA long axis: 5.9 cm LA A4 area: 28.1 cm2 RA area: 23.2 cm2 LA length (vol): 6.2 cm RA vol: 78.0 ml LA vol: 121.9 ml RA : 35.2 ml/m2 LA vol index: 55.0 ml/m2 IVC diam: 1.7 cm RVD1 (basal): 2.9 cm TAPSE: 1.7 cm Doppler Measurements & Calculations Ao V2 max: 217.8 cm/sec LVOT Max Gerardo: 96.9 cm/sec Ao V2 mean: 147.1 cm/sec LV V1 max P.8 mmHg Ao max P.0 mmHg LV V1 VTI: 14.9 cm Ao mean P.8 mmHg LU(I,D): 1.5 cm2 Ao V2 VTI: 32.1 cm LU(V,D): 1.5 cm2 sev ratio: 0.47 LU indexed to BSA (cm^2/m^2): 0.69 MV E max gerardo: 82.6 cm/sec TR max gerardo: 343.3 cm/sec MV A max gerardo: 1.3 cm/sec TR max P.1 mmHg MV E/A: 64.5 PA pr(Accel): 31.0 mmHg Med Peak E' Gerardo: 8.1 cm/sec E/E' med: 10.2 Lat Peak E' Gerardo: 10.8 cm/sec E/E' lat: 7.6 E/e' average: 8.9 MV dec time: 0.17 sec SV(LVOT): 48.9 ml Reading Physician:04:55 PM
== END ==
PROVIDERS: PCP Nurse Practitioner; Referring Provider Internal Medicine Cardiovascular Disease; Visit Provider Internal Medicine Cardiovascular Disease
DX: I08.0 Rheumatic disorders of both mitral and aortic valves (principal); I77.89 Other specified disorders of arteries and arterioles; Z95.2 Presence of prosthetic heart valve
CPT/HCPCS: 93306

== ENCOUNTER → 2021-05-03 15:34 | Outpatient (CLI) | payer MEDICARE, SELFPAY ==
[2019-05-11 19:22] VITALS: BMI 31.6
--- NOTE | 2021-05-03 15:35 | DI.RAD.S_ITS ---
PROCEDURE: XR CHEST 2V INDICATIONS: Elevated WBC count prior to procedure TECHNIQUE: 2 views of the chest were acquired. COMPARISON: [facility], , CHEST 2 VIEW, 12/12/2016, 15:11. [facility], , CHEST 1 VIEW, 12/27/2016, 13:10. Outside Film, CT, CT ANGIO CHEST, 05/17/2020, 14:18. [facility], , XR CHEST 1V, 06/07/2020, 13:40. FINDINGS: Surgical changes and devices: There is a prosthetic aortic valve. Lungs and pleura: No acute consolidation. There is a small nodular opacity projecting of the left lung base suggestive of a nipple shadow. No pleural effusions or pneumothorax. Mediastinum: Mediastinal contours are normal. Heart size is normal. Bones and chest wall: No suspicious bony abnormalities. Soft tissues appear unremarkable. IMPRESSION: 1. No definite acute cardiopulmonary disease. 2. Nodular opacity projecting over the left lung base suggestive of a nipple shadow. If clinically indicated, a repeat study may be performed with nipple markers. Dictated by: John Gottlieb M.D. on 05/03/2021 at 17:49 Approved by: John Gottlieb M.D. on 05/03/2021 at 17:51
[2021-05-03 16:13] LABS: Appearance Urine UA CLEAR; Bilirubin Urine UA NEGATIVE (NEGATIVE); Color Urine UA YELLOW; Glucose Urine UA TRACE g/dL (Negative); Ketones Urine UA NEGATIVE (NEGATIVE); Leukocyte Esterase Urine UA NEGATIVE (NEGATIVE); Nitrite Urine UA NEGATIVE (Negative); Occult Blood Urine UA TRACE-LYSED (Negative); Protein Urine UA NEGATIVE (Negative); Specific Gravity Urine UA 1.025 (1.000-1.035); Urobilinogen Urine UA 0.2 E.U./dL (0.2)
[2021-05-03 17:17] LABS: Bacteria Urine None Seen; RBC Urine 0-1/HPF (0-5/HPF); Squamous Epithelial Cell Urine 0-1 /HPF (0-5/HPF); WBC Urine 0-1/HPF (0-5/HPF)
[2021-05-03 17:18] LABS: Culture Indicated Urine Cult Not Indicated; Hyaline Casts Urine 5-10/LPF; Mucus Urine 1+ (Negative); Other Crystals Urine 1+ Amorphous
== END ==
PROVIDERS: PCP Nurse Practitioner; Referring Provider Nurse Practitioner; Visit Provider Nurse Practitioner
DX: D72.829 Elevated white blood cell count, unspecified
CPT/HCPCS: 71046; 81001

== ENCOUNTER → 2021-05-05 17:37 | Outpatient (CLI) | payer MEDICARE, SELFPAY ==
[2021-05-04 13:35] VITALS: BMI 31.6
[2021-05-05 21:21] LABS: Hematocrit 46.1 % (41-53); Hemoglobin 15.4 g/dL (13.5-17.5); Mean Corpuscular HGB Conc 33.3 % (30-36); Mean Corpuscular Hemoglobin 33.6 PG (26-34); Mean Corpuscular Volume 100.9 fL (80-100); Platelet Count 149 X10^3/uL (150-400); Red Blood Cell Count 4.57 X10^6/uL (4.5-5.9); Red Cell Distribution Width 14.6 % (11.6-14.8); White Blood Cell Count 7.6 X10^3/uL (4.5-11.0)
== END ==
PROVIDERS: PCP Nurse Practitioner; Referring Provider Nurse Practitioner; Visit Provider Nurse Practitioner
DX: D72.829 Elevated white blood cell count, unspecified (principal); Z01.812 Encounter for preprocedural laboratory examination
CPT/HCPCS: 36415; 85027

== ENCOUNTER → 2022-09-12 10:03 | Outpatient (CLI) | payer OTHER, SELFPAY ==
[2021-05-04 13:35] VITALS: BMI 31.6
[2022-09-12 11:49] LABS: Alanine Aminotransferase 27 IU/L (<50); Albumin 4.2 g/dL (3.5-5.0); Albumin Globulin Ratio 1.3 (1.0-2.8); Alkaline Phosphatase 91 U/L (38-126); Aspartate Aminotransferase 56 IU/L (17-59); BUN Creatinine Ratio 21.2 (6-22); Bilirubin Total 1.3 mg/dL (0.2-1.3); Blood Urea Nitrogen 25 mg/dL (9-20); Calcium 8.6 mg/dL (8.4-10.2); Carbon Dioxide 26 mmol/L (22-32); Chloride 101 mmol/L (98-107); Cholesterol 167 mg/dL (140-199); Estimated Glomerular Filt Rate > 60 mL/min (>60); Globulin 3.2 g/dL (1.7-4.1); Glucose 122 mg/dL (80-110); HDL Cholesterol 33 mg/dL (40-60); HEMOLYSIS < 15 (0-50); LDL Cholesterol Calculated 107 mg/dL (<100); Potassium 4.6 mmol/L (3.4-5.1); Sodium 136 mmol/L (137-145); Total Protein 7.4 g/dL (6.3-8.2); Triglycerides 133 mg/dL (35-150)
[2022-09-12 11:59] LABS: Free T3, Triiodothyronine Free 3.95 pg/mL (2.77-5.27); Free T4, Direct Thyroxine 0.96 ng/dL (0.78-2.19)
[2022-09-12 12:13] LABS: Thyroid Stimulating Hormone 2.46 uIU/mL (0.47-4.68)
[2022-09-12 16:16] LABS: Microalbumin Urine Random 1.1 mg/dL (0-1.6)
[2022-09-12 16:23] LABS: Creatinine Urine Random 184.4 mg/dL; Microalbumi Creatinin Ratio Ur 5.9 ug/mg CR (<30)
== END ==
PROVIDERS: PCP Nurse Practitioner; Referring Provider Nurse Practitioner; Visit Provider Nurse Practitioner
DX: I10 Essential (primary) hypertension (principal); E78.2 Mixed hyperlipidemia; I27.20 Pulmonary hypertension, unspecified; I48.91 Unspecified atrial fibrillation; I50.32 Chronic diastolic (congestive) heart failure; Z79.899 Other long term (current) drug therapy
CPT/HCPCS: 36415; 80053; 80061; 82043; 82570; 83735; 84439; 84443; 84481

== ENCOUNTER → 2022-11-14 12:34 | Outpatient (CLI) | payer OTHER, SELFPAY ==
[2022-11-14 12:30] VITALS: BMI 31.6
[2022-11-14 13:44] LABS: Alanine Aminotransferase 22 IU/L (<50); Albumin Globulin Ratio 1.3 (1.0-2.8); Alkaline Phosphatase 95 U/L (38-126); Aspartate Aminotransferase 40 IU/L (17-59); Bilirubin Total 1.2 mg/dL (0.2-1.3); HEMOLYSIS < 15 (0-50)
== END ==
PROVIDERS: PCP Nurse Practitioner; Referring Provider Nurse Practitioner; Visit Provider Nurse Practitioner
DX: B35.1 Tinea unguium (principal); Z79.899 Other long term (current) drug therapy
CPT/HCPCS: 36415; 80076

== ENCOUNTER → 2023-04-12 15:51 | Outpatient (CLI) | payer OTHER, SELFPAY ==
[2023-04-12 14:15] VITALS: BMI 31.6
[2023-04-15 16:35] LABS: Fecal Immunochemical Test Positive (Negative)
== END ==
PROVIDERS: PCP Nurse Practitioner; Visit Provider Nurse Practitioner
DX: Z79.01 Long term (current) use of anticoagulants (principal); K92.1 Melena
CPT/HCPCS: 82274

== ENCOUNTER → 2023-04-13 12:06 | Outpatient (CLI) | payer OTHER, SELFPAY ==
[2023-04-12 14:15] VITALS: BMI 31.6
[2023-04-13 12:23] LABS: Add Manual Diff / Slide Review NO; Basophils Absolute Auto 100 /uL (0-100); Basophils Percent Auto 0.9 % (0-2); Eosinophils Absolute Auto 200 /uL (0-450); Eosinophils Percent Auto 2.9 % (2-4); Hematocrit 44.2 % (41-53); Hemoglobin 14.5 g/dL (13.5-17.5); Lymphocytes Absolute Auto 1400 /uL (1100-4500); Mean Corpuscular HGB Conc 32.7 % (30-36); Mean Corpuscular Volume 88.8 fL (80-100); Monocytes Absolute Auto 800 /uL (0-900); Monocytes Percent Auto 10.6 % (3-14); Neutrophils Absolute Auto 4800 /uL (1500-7000); Neutrophils Percent Auto 66.6 % (50-75); Platelet Count 140 X10^3/uL (150-400); Red Blood Cell Count 4.98 X10^6/uL (4.5-5.9); Red Cell Distribution Width 16.9 % (11.6-14.8); White Blood Cell Count 7.2 X10^3/uL (4.5-11.0)
== END ==
PROVIDERS: PCP Nurse Practitioner; Referring Provider Ophthalmology; Visit Provider Ophthalmology
DX: K92.1 Melena (principal); Z79.01 Long term (current) use of anticoagulants
CPT/HCPCS: 36415; 85025

== ENCOUNTER → 2023-12-10 10:27 | Outpatient (CLI) | payer OTHER, SELFPAY ==
[2023-04-12 14:15] VITALS: BMI 31.6
[2023-12-10 12:48] LABS: Add Manual Diff / Slide Review NO; Basophils Absolute Auto 100 /uL (0-100); Basophils Percent Auto 0.8 % (0-2); Eosinophils Absolute Auto 100 /uL (0-450); Eosinophils Percent Auto 1.4 % (2-4); Hematocrit 50.8 % (41-53); Hemoglobin 17.1 g/dL (13.5-17.5); Lymphocytes Absolute Auto 1300 /uL (1100-4500); Lymphocytes Percent Auto 18.1 % (25-40); Mean Corpuscular HGB Conc 33.7 % (30-36); Mean Corpuscular Hemoglobin 31.1 PG (26-34); Mean Corpuscular Volume 92.5 fL (80-100); Monocytes Absolute Auto 600 /uL (0-900); Monocytes Percent Auto 8.4 % (3-14); Neutrophils Absolute Auto 5200 /uL (1500-7000); Neutrophils Percent Auto 71.3 % (50-75); Platelet Count 144 X10^3/uL (150-400); Red Blood Cell Count 5.49 X10^6/uL (4.5-5.9); Red Cell Distribution Width 15.2 % (11.6-14.8); White Blood Cell Count 7.3 X10^3/uL (4.5-11.0)
[2023-12-10 13:09] LABS: Alanine Aminotransferase 42 IU/L (<50); Albumin 4.6 g/dL (3.5-5.0); Albumin Globulin Ratio 1.5 (1.0-2.8); Alkaline Phosphatase 95 U/L (38-126); Aspartate Aminotransferase 48 IU/L (17-59); BUN Creatinine Ratio 20.7 (6-22); Bilirubin Total 0.8 mg/dL (0.2-1.3); Blood Urea Nitrogen 38 mg/dL (9-20); Calcium 9.3 mg/dL (8.4-10.2); Carbon Dioxide 33 mmol/L (22-32); Chloride 99 mmol/L (98-107); Estimated Glomerular Filt Rate 38 mL/min (>60); Globulin 3.1 g/dL (1.7-4.1); Glucose 126 mg/dL (80-110); HDL Cholesterol 33 mg/dL (40-60); HEMOLYSIS < 15 (0-50); Magnesium 2.5 mg/dL (1.6-2.3); Potassium 5.1 mmol/L (3.4-5.1); Sodium 137 mmol/L (137-145); Total Protein 7.7 g/dL (6.3-8.2); Triglycerides 194 mg/dL (35-150)
[2023-12-10 13:20] LABS: HEMOLYSIS < 15 (0-50); Iron 109 ug/dL (49-181)
[2023-12-10 13:21] LABS: Hemoglobin A1C% w Est Avg Glu 6.4 % (4.0-6.0)
[2023-12-10 13:34] LABS: Percent Iron Saturation 27 % (20-50); Total Iron Binding Capacity 397 ug/dL (261-462); Transferrin 314 mg/dL (206-381)
[2023-12-10 13:35] LABS: Vitamin B12 985 pg/mL (239-931)
[2023-12-10 13:40] LABS: Free T3, Triiodothyronine Free 5.27 pg/mL (2.77-5.27); Free T4, Direct Thyroxine 0.89 ng/dL (0.78-2.19)
[2023-12-10 13:43] LABS: Cholesterol 162 mg/dL (140-199); LDL Cholesterol Calculated 90 mg/dL (<100)
[2023-12-10 13:52] LABS: Thyroid Stimulating Hormone 2.59 uIU/mL (0.47-4.68)
[2023-12-10 14:39] LABS: Creatinine Urine Random 136.36 mg/dL
[2023-12-10 14:46] LABS: Microalbumin Urine Random 4.3 mg/dL (0-1.6)
== END ==
PROVIDERS: PCP Nurse Practitioner; Referring Provider Nurse Practitioner; Visit Provider Nurse Practitioner
DX: Z79.01 Long term (current) use of anticoagulants (principal); R73.01 Impaired fasting glucose; I10 Essential (primary) hypertension; I27.20 Pulmonary hypertension, unspecified; I48.91 Unspecified atrial fibrillation; Z79.899 Other long term (current) drug therapy; R53.83 Other fatigue; T50.2X1A Poisoning by carbonic-anhydrase inhibitors, benzothiadiazides and other diuretics, accidental (unintentional), initial encounter
CPT/HCPCS: 36415; 80053; 80061; 82043; 82570; 82607; 83036; 83540; 83550; 83735; 84439; 84443; 84481; 85025; 86803

== ENCOUNTER → 2025-06-03 14:40 | Outpatient (CLI) | payer MEDICARE, SELFPAY ==
[2023-04-12 14:15] VITALS: BMI 31.6
--- NOTE | 2025-06-03 14:42 | DI.CT.S_ITS ---
PROCEDURE: CT LUNG LOW DOSE SCREENING INDICATIONS: History of Smoking TECHNIQUE: Noncontrast 2.0-2.5 mm thick sections acquired from the pulmonary apices to the posterior costophrenic angles. 7 mm thick axial MIP, and 5 mm coronal and sagittal reformats were then acquired. For radiation dose reduction, the following was used: automated exposure control, adjustment of mA and/or kV according to patient size. COMPARISON: None. FINDINGS: Image quality: Diagnostic. Lower Neck: No enlarged lymph nodes. Thyroid: No thyroid nodules which require sonographic follow up, per consensus guidelines. Axillae: No enlarged lymph nodes. Chest Wall: Unremarkable. Bones: Unremarkable. Lungs and Pleura: No pneumothorax or pleural effusions. No consolidation or suspicious nodules. Scattered calcified granulomas and sub 3-mm pulmonary micronodules. Heart: Heart size is normal. No pericardial effusion. Status post TAVR. Coronary artery calcifications are present. Thoracic Vessels: The aorta and pulmonary arteries demonstrate normal size. Mediastinum and Poornima: No enlarged lymph nodes. Esophagus: No wall thickening. No hiatal hernia. Upper Abdomen: Cyst in the left liver. Visualized upper abdomen solid organs and bowel loops otherwise appear normal. IMPRESSION: No suspicious pulmonary nodules. LUNG-RADS 2; continued annual screening, if eligible. Clinically Significant Non-pulmonary Findings: None. Dictated by: Amee Lxu M.D. on 06/06/2025 at 0:17 Approved by: Amee Lux M.D. on 06/06/2025 at 0:21
--- NOTE | 2025-06-03 14:46 | DI.RAD.S_ITS ---
PROCEDURE: XR CHEST 2V INDICATIONS: CHEST PAIN TECHNIQUE: 2 views of the chest were acquired. COMPARISON: [facility], CR, XR CHEST 2V, 05/03/2021, 16:12. FINDINGS: Surgical changes and devices: Prosthetic heart valve is seen. Lungs and pleura: There is mild pulmonary vascular congestion. No focal infiltrate. No pleural effusions or pneumothorax. Mediastinum: Mediastinal contours are normal. Heart size is mildly enlarged. Bones and chest wall: No suspicious bony abnormalities. Soft tissues appear unremarkable. IMPRESSION: Cardiomegaly and mild congestion. No definite focal infiltrate. No pleural effusion or pneumothorax. Dictated by: Ryan Worthy M.D. on 06/03/2025 at 21:08 Approved by: Ryan Worthy M.D. on 06/03/2025 at 21:09
== END ==
LOC: CT 14:42
PROVIDERS: PCP Family Medicine; Referring Provider Family Medicine; Visit Provider Family Medicine
DX: Z87.891 Personal history of nicotine dependence (principal)
CPT/HCPCS: 71046; 71271